=== PATIENT | female | born 1970 | race Caucasian/White ===

== ENCOUNTER 2016-06-12 22:19 | Emergency (ER) | payer BC ==
[2016-06-12 22:33] VITALS: BP 148/101
[2016-06-12] MEDS ORDERED: Ondansetron 4 MG/2 ML SDV IVPUSH ONE (22:54)
[2016-06-12] MEDS ORDERED: Sodium Chloride 0.9% 1,000 ML IV SCH (23:00)
[2016-06-12] MEDS ORDERED: Levofloxacin 250 MG Tab PO ONE (23:17)
--- NOTE | 2016-06-12 23:19 | EDM.PDOC ---
ED HISTORY OF PRESENT ILLNESS - General Chief Complaint: Abdominal Pain Stated Complaint: RIGHT SIDE PAIN Time Seen by Provider: 06/12/16 23:32 Source of Information: Reports: Patient, Family (spouse) History Limitations: Reports: No limitations - History of Present Illness INITIAL COMMENTS - FREE TEXT/NARRATIVE: 45-year-old female presents the ED with severe right upper abdominal pain that does not radiate through to her back. Came on about 2000 hours tonight and has persisted. It is very sharp and stabbing component to the pain with no position couple. She's had similar type pain the last few weeks lasting an hour or 2 often waking her from sleep at 1:00 in the morning. Associated nausea without any vomiting today. She states her bowel function has been normal. She's had no previous abdominal surgeries. Routine orders were ordered for abdominal pain per the triage nurse to the due to the dizziness of the ER.patient ate fish with tartar size about 1800 hours last evening. Symptom Onset Date: 06/12/16 Symptom Onset Time: 20:00 Timing/Duration: Reports: Hour(s):, Constant, Sudden onset Location, General: Reports: abdomen (right buster-abdomen mid and upper.) Quality: Reports: Ache, Sharp, Stabbing Improves with: Reports: None Worsens with: Reports: None Context, General: Denies: Activity, Exercise, Lifting, Sick contact, Trauma, Other Associated Symptoms (General): Reports: loss of appetite, malaise, nausea/ vomiting. Denies: fever/chills, headaches, rash (with no), seizure, shortness of breath, syncope, weakness Treatments QUILL LAYER: Reports: Other (see below) (none) - Related Data Allergies/ADRs: Allergies Allergy/AdvReac Type Severity Reaction Status Date / Time No Known Allergies Allergy Verified 06/12/16 22:33 Home Meds: Home Meds Control Pills 1 tab PO DAILY 06/12/16 [History] Ondansetron [Zofran ODT] 4 mg PO Q6H #5 tab.dis 06/13/16 [Rx] oxyCODONE HCl/Acetaminophen [Percocet 5-325 mg Tablet] 1 - 2 each PO Q4H PRN # 12 tablet 06/13/16 [Rx] Past Medical History - Past Health History Medical/Surgical History: Denies Medical/Surgical History Social & Family History - Family History Family Medical History: Noncontributory - Tobacco Use Smoking Status *Q: Never Smoker Second Hand Smoke Exposure: No - Caffeine Use Caffeine Use: Reports: None - Recreational Drug Use Recreational Drug Use: No - Living Situation & Occupation Living situation: Reports: Occupation: employed ED ROS GENERAL - Review of Systems Review Of Systems: See Below Constitutional: Reports: decreased appetite. Denies: fever, chills, malaise, weakness, fatigue, weight loss HEENT: Reports: No symptoms Respiratory: Reports: No Symptoms Cardiovascular: Reports: No symptoms Endocrine: Reports: no symptoms GI/Abdominal: Reports: Abdominal pain (see history of present), Anorexia, Nausea. Denies: Black stool, Bloody stool, Constipation, Distension, Flatus, Hematemesis, Hematochezia, Stool incontinence, Vomiting : Reports: no symptoms Musculoskeletal: Reports: no symptoms Skin: Reports: no symptoms Neurological: Reports: No Symptoms Psychiatric: Reports: No symptoms Hematologic/Lymphatic: Reports: no symptoms ED EXAM, GENERAL - Physical Exam Exam: See Below Exam Limited By: No limitations General Appearance: alert, moderate distress (in obvious pain and discomfort no position is carpal. She is writhing on the bed.) Eye Exam: bilateral eye: normal inspection (no jaundice.) Throat/Mouth: Normal inspection, Normal lips, Normal oropharynx Head: atraumatic, normocephalic Neck: normal inspection, supple, non-tender, full range of motion. No: lymphadenopathy (L), lymphadenopathy (R) Respiratory/Chest: lungs clear, normal breath sounds, no accessory muscle use, respiratory distress (mild tachypnea due to pain.) Cardiovascular: normal peripheral pulses, regular rate, rhythm, no edema, no gallop, no murmur Peripheral Pulses: 2+: posterior tibial (L), posterior tibial (R), dorsalis pedis (L), dorsalis pedis (R) GI/Abdominal: guarding (right upper quadrant with a positive Harvey sign.), tender (right upper quadrant with guarding.), abnormal bowel sounds: ( hypoactive bowel sounds.) Back Exam: normal inspection, full range of motion. No: CVA tenderness (L), CVA tenderness (R) Extremities: normal inspection, normal range of motion, non-tender, no pedal edema, normal capillary refill Neurological: alert, oriented, CN II-XII intact, normal cognition, normal gait, normal reflexes, no motor/sensory deficits Psychiatric: normal affect, normal mood Skin Exam: Warm, Dry, Intact, Normal color, No rash Course - Vital Signs Last Recorded V/S: Last Vital Signs Temp 36.1 C 06/12/16 22:27 Pulse 64 06/12/16 22:27 Resp 20 06/12/16 22:27 BP 148/101 H 06/12/16 22:27 Pulse Ox 100 06/12/16 22:27 - Orders/Labs/Meds Orders: Active Orders 24 hr Category Date Time Status Abdomen 2V AP Flat Upright [CR] Stat Exams 06/12/16 22:57 Taken Abdomen Pelvis wo Cont [CT] Stat Exams 06/13/16 00:05 Taken AMYLASE [CHEM] Stat Lab 06/13/16 06:10 Results COMPREHENSIVE METABOLIC PN,CMP [CHEM] Stat Lab 06/13/16 06:10 Results GAMMA GLUTAMYL TRANSFERASE,GGT [CHEM] Stat Lab 06/13/16 06:10 Results Sodium Chloride 0.9% [Normal Saline] 1,000 ml Med 06/12/16 23:00 Active IV ASDIRECTED Medication Orders Sodium Chloride (Normal Saline) 1,000 mls @ 125 mls/hr IV ASDIRECTED ROBERTH Last Admin: 06/12/16 23:05 Dose: 150 mls/hr Labs: Laboratory Tests 06/12/16 06/12/16 06/12/16 Range/Units 22:50 22:50 22:50 WBC 9.21 (3.98-10.04) K/mm3 RBC 4.32 (3.98-5.22) M/mm3 Hgb 13.2 (11.2-15.7) gm/L Hct 39.3 (34.1-44.9) % MCV 91.0 (79.4-94.8) fl MCH 30.6 (25.6-32.2) pg MCHC 33.6 (32.2-35.5) g/dl RDW Std Deviation 41.2 (36.4-46.3) fL Plt Count 259 (182-369) K/mm3 MPV 10.5 (9.4-12.3) fl Neutrophils % (Manual) 69 H (40-60) % Band Neutrophils % 0 (0-10) % Lymphocytes % (Manual) 25 (20-40) % Atypical Lymphs % 0 % Monocytes % (Manual) 4 (2-10) % Eosinophils % (Manual) 2 (0.7-5.8) % Basophils % (Manual) 0 L (0.1-1.2) Platelet Estimate Adequate Plt Morphology Comment RBC Morph Comment Normal Sodium 142 (136-145) mEq/L Potassium 3.7 (3.5-5.1) mEq/L Chloride 105 (98-107) mEq/L Carbon Dioxide 26 (21-32) mEq/L Anion Gap 14.7 (5-15) BUN 11 (7-18) mg/dL Creatinine 1.0 (0.55-1.02) mg/dL Est Cr Clr Drug Dosing 72.42 mL/min Estimated GFR (MDRD) > 60 (>60) mL/min BUN/Creatinine Ratio 11.0 L (14-18) Glucose 149 H (74-106) mg/dL Calcium 8.9 (8.5-10.1) mg/dL Total Bilirubin 0.3 (0.2-1.0) mg/dL AST 23 (15-37) U/L ALT 25 (14-59) U/L Alkaline Phosphatase 63 (46-116) U/L C-Reactive Protein 1.1 H* (<1.0) mg/dL Total Protein 7.5 (6.4-8.2) g/dl Albumin 3.5 (3.4-5.0) g/dl Globulin 4.0 gm/dL Albumin/Globulin Ratio 0.9 L (1-2) Amylase (25-115) U/L Lipase 151 (73-393) U/L HCG, Qual Negative (NEGATIVE) Urine Color (Yellow) Urine Appearance (Clear) Urine pH (5.0-8.0) Ur Specific [place] (1.005-1.030) Urine Protein (Negative) Urine Glucose (UA) (Negative) Urine Ketones (Negative) Urine Occult Blood (Negative) Urine Nitrite (Negative) Urine Bilirubin (Negative) Urine Urobilinogen (0.2-1.0) Ur Leukocyte Esterase (Negative) Urine RBC (0-5) /hpf Urine WBC (0-5) /hpf Urine WBC Clumps (NOT SEEN) /hpf Ur Epithelial Cells (0-5) /hpf Ur Squamous Epith Cells (0-5) /hpf Urine Bacteria (FEW) /hpf Urine Mucus (FEW) /hpf 06/13/16 06/13/16 06/13/16 Range/Units 00:49 06:10 06:10 WBC 9.00 (3.98-10.04) K/mm3 RBC 4.38 (3.98-5.22) M/mm3 Hgb 13.3 (11.2-15.7) gm/L Hct 39.6 (34.1-44.9) % MCV 90.4 (79.4-94.8) fl MCH 30.4 (25.6-32.2) pg MCHC 33.6 (32.2-35.5) g/dl RDW Std Deviation 40.9 (36.4-46.3) fL Plt Count 235 (182-369) K/mm3 MPV 10.4 (9.4-12.3) fl Neutrophils % (Manual) 70 H (40-60) % Band Neutrophils % 0 (0-10) % Lymphocytes % (Manual) 26 (20-40) % Atypical Lymphs % 0 % Monocytes % (Manual) 4 (2-10) % Eosinophils % (Manual) 0 L (0.7-5.8) % Basophils % (Manual) 0 L (0.1-1.2) Platelet Estimate Adequate Plt Morphology Comment Normal RBC Morph Comment Normal Sodium 140 (136-145) mEq/L Potassium 4.0 (3.5-5.1) mEq/L Chloride 106 (98-107) mEq/L Carbon Dioxide 23 (21-32) mEq/L Anion Gap 15.0 (5-15) BUN 9 (7-18) mg/dL Creatinine 0.8 (0.55-1.02) mg/dL Est Cr Clr Drug Dosing 90.53 mL/min Estimated GFR (MDRD) > 60 (>60) mL/min BUN/Creatinine Ratio 11.3 L (14-18) Glucose 120 H (74-106) mg/dL Calcium 8.5 (8.5-10.1) mg/dL Total Bilirubin 0.5 (0.2-1.0) mg/dL AST 17 (15-37) U/L ALT 25 (14-59) U/L Alkaline Phosphatase 60 (46-116) U/L C-Reactive Protein (<1.0) mg/dL Total Protein 6.9 (6.4-8.2) g/dl Albumin 3.1 L (3.4-5.0) g/dl Globulin 3.8 gm/dL Albumin/Globulin Ratio 0.8 L (1-2) Amylase 31 (25-115) U/L Lipase (73-393) U/L HCG, Qual (NEGATIVE) Urine Color Yellow (Yellow) Urine Appearance Clear (Clear) Urine pH 6.0 (5.0-8.0) Ur Specific [place] > or = 1.030 (1.005-1.030) Urine Protein Trace H (Negative) Urine Glucose (UA) Negative (Negative) Urine Ketones Trace H (Negative) Urine Occult Blood Negative (Negative) Urine Nitrite Negative (Negative) Urine Bilirubin Negative (Negative) Urine Urobilinogen 2.0 H (0.2-1.0) Ur Leukocyte Esterase Negative (Negative) Urine RBC 0-5 (0-5) /hpf Urine WBC 0-5 (0-5) /hpf Urine WBC Clumps Not seen (NOT SEEN) /hpf Ur Epithelial Cells 0-5 (0-5) /hpf Ur Squamous Epith Cells 0-5 (0-5) /hpf Urine Bacteria Not seen (FEW) /hpf Urine Mucus Not seen (FEW) /hpf Meds: Medications Generic Name Dose Route Start Last Admin Trade Name Freq PRN Reason Stop Dose Admin Sodium Chloride 1,000 mls @ 125 mls/hr 06/12/16 23:00 06/12/16 23:05 Normal Saline IV 150 mls/hr ASDIRECTED ROBERTH Administration Discontinued Medications Generic Name Dose Route Start Last Admin Trade Name Freq PRN Reason Stop Dose Admin Hydromorphone HCl 1 mg 06/12/16 23:44 06/13/16 00:03 Dilaudid IVPUSH 06/12/16 23:45 1 mg ONETIME ONE Administration Hydromorphone HCl 1 mg 06/13/16 01:00 06/13/16 01:16 Dilaudid IVPUSH 06/13/16 01:01 1 mg ONETIME ONE Administration Levofloxacin 500 mg 06/12/16 23:17 06/13/16 00:53 Levaquin PO 06/12/16 23:18 Not Given ONETIME ONE Ondansetron HCl 4 mg 06/12/16 22:54 06/12/16 23:05 Zofran IVPUSH 06/12/16 22:55 4 mg ONETIME ONE Administration - Radiology Interpretation Free Text/Narrative:: 45-year-old female attends the ED with acute onset of severe right buster- abdominal pain mostly upper. Came on about 2000 hours tonight. She deepened supper at about 1800 hours which included fish and turgor sounds. She's had similar type pain off and on for the last few weeks often wake her up at nighttime lasting an hour or 2 and going away. No previous abdominal surgery. Examination reveals her to be very tender in the right upper quadrant with positive Harvey sign. Suspect acute biliary colic. She has no pain referred to her back or flank. had adopted the abdominal pain protocol and ordered x- ray and lab work. She has received Zofran 4 mg IV. I will give her Dilaudid 1 mg IV now for pain relief. - Re-Assessments/Exams Free Text/Narrative Re-Assessment/Exam: 06/13/16 00:00labwork reveals a with a white count of 9.21 with 69% neutrophils and no bands. Hemoglobin is 13.2 hematocrit is 39.3. Platelets are normal. Chemistry shows a sodium of 142 potassium 3.7. Anion gap is 14.7. Glucose elevated at 149. CRP 1.1. Bilirubin 0.3 AST 23 ALT 25. Alk phosphatase 63. Lipase 151. All normal.x-ray of the abdomen shows increased stool throughout the right hemicolon transverse colon and of the upper descending colon compatible with constipation. Obvious stones are identified in the distribution of the right kidney or gallbladder area. 06/13/16 01:05 CT of the abdomen and pelvis has been performed without contrast. Kidneys are well-visualized and there is no evidence of renal stones or stones within the ureters. Liver is normal. Gallbladder does reveal multiple gallstones and there appears to be a 3 mm stone in the common bile duct. Of note there was no abnormalities of liver function or lipase at the initial assessment and pain in been present for about 4 hours prior to lab work. Her pain is still for 5/10. I'm going to give her another milligram of Dilaudid at this time. I will see if she settles enough to allow her to go home versus keeping in the ED overnight and repeating lab tests later this morning to see if there is evidence of biliary tree obstruction which would suggest the need for an ERCP.discussed this plan with the patient and her and they are in agreement . Will have repeat amylase and CMP and CBC done at 0600 hours this morning. 06/13/16 04:33patient has been up to the bathroom and states that she still has very mild discomfort right upper quadrant but rates as a 1/10. She is able to fall back asleep. Lab work is scheduled for 6:00 this morning. 06/13/16 07:13 repeat labs reveal no changes. White count remains normal at 9.0 with 70% neutrophils no bands hemoglobin is 13.3 hematocrit is 39.6 platelets 2 and 35,000. Chemistry is normal. No gross is 120 AST remains normal at 17 ALT of 25 alkaline phosphatase this 60 amylase is 31. 4 there is no signs of biliary tree obstruction at this time the risk is certainly there is there appears to be a 3 mm stone in the common bile duct on CT exam. Therefore going to have her follow up with Dr. Joel More over at [facility] in 2-3 days time to have repeat labs. She needs a consultation at any rate to see Dr. Jazmin Blas to have her gallbladder removed.in the meantime she will return to the ED if she has increased pain nausea vomiting or develops jaundice or worrisome signs of pancreatitis. We will send her home with 12 tablets of Percocet 5 /325and Zofran 4 mg sublingual to be taken as needed for relief of pain or nausea or vomiting. Departure - Departure Time of Disposition: 07:15 Disposition: Home, Self-Care 01 Condition: fair Clinical Impression: Biliary colic Cholelithiasis Qualifiers: Cholelithiasis location: gallbladder and bile duct Cholecystitis presence: without cholecystitis Biliary obstruction: with biliary obstruction Qualified Code(s): K80.71 - Calculus of gallbladder and bile duct without cholecystitis with obstruction Prescriptions: Ondansetron [Zofran ODT] 4 mg PO Q6H #5 tab.dis oxyCODONE HCl/Acetaminophen [Percocet 5-325 mg Tablet] 1 - 2 each PO Q4H PRN # 12 tablet PRN Reason: pain relief. Forms: ED Department Discharge Additional Instructions: evaluation in the emergency room tonight in regards to acute onset of severe right upper quadrant right abdominal pain at [address] exam of the abdomen confirms multiple gallstones but was also suggestive of a stone in the common bile duct which drains both the liver and the pancreas. Suture pain was still present and not well controlled with the risk of developing biliary tree obstruction he were kicked in the ED overnight with repeat blood test done at 0600 hours this morning. Lab tests again revealed no evidence of patellar tree obstruction or signs of infection. Therefore at this time he will be discharged to home on a low-fat diet. Suggest lots of fluids today such as Gatorade, Powerade. Been advanced tocarbohydrate diet such as Jell-O soup be advanced to soups that are during free. Red the carbohydrates should be well tolerated. Suggest arranging followup with Dr. Joel More in 2-3 days time to have repeat labs done to make sure there is no evidence of developing biliary tree obstruction and need for ERCP--the scope to remove the stone from the common bile duct. Also an appointment is to be set up with Dr. Jazmin Blas --surgeon to have the gallbladder removed.if you get recurrent pain may try 2 Percocet tablets with Zofran 4 mg under the tongue. However if the pain worsens or vomiting occurs you will need to return to the emergency room. - My Orders Last 24 Hours: My Active Orders 06/12/16 23:00 Sodium Chloride 0.9% [Normal Saline] 1,000 ml IV ASDIRECTED 06/13/16 00:05 Abdomen Pelvis wo Cont [CT] Stat 06/13/16 06:10 AMYLASE [CHEM] Stat COMPREHENSIVE METABOLIC PN,CMP [CHEM] Stat GAMMA GLUTAMYL TRANSFERASE,GGT [CHEM] Stat - Assessment/Plan Last 24 Hours: My Active Orders 06/12/16 23:00 Sodium Chloride 0.9% [Normal Saline] 1,000 ml IV ASDIRECTED 06/13/16 00:05 Abdomen Pelvis wo Cont [CT] Stat 06/13/16 06:10 AMYLASE [CHEM] Stat COMPREHENSIVE METABOLIC PN,CMP [CHEM] Stat GAMMA GLUTAMYL TRANSFERASE,GGT [CHEM] Stat
[2016-06-12] MEDS ORDERED: HYDROmorphone 1 MG/ML Syringe IVPUSH ONE (23:44)
[2016-06-13] MEDS ORDERED: HYDROmorphone 1 MG/ML Syringe IVPUSH ONE (01:00)
--- NOTE | 2016-06-13 10:34 | CR ---
Abdomen: Supine and upright views of the abdomen was obtained. Comparison: No previous abdominal x-ray. Calcifications within the left side of the pelvis likely representing phleboliths. Stool is noted throughout the colon. Two surgical clips are seen within each side of both inguinal regions. No free air is identified. No soft tissue abnormality is seen. Impression: 1. Incidental findings as described above. Diagnostic code #2
--- NOTE | 2016-06-13 14:13 | CT ---
CT abdomen and pelvis Technique: Multiple axial sections were obtained from above the dome of the diaphragm inferiorly through the pubic symphysis. Intravenous and oral contrast not utilized. This limits some details of soft tissue structures. Small portion of the visualized lung bases show nothing acute. Liver shows no focal parenchymal abnormality. Multiple layering gallstones are seen which appear calcified within the gallbladder. Single stone projects within the cystic duct. No gallbladder dilatation is seen. No inflammatory change identified around the pancreas. Spleen appears within normal limits. Kidneys show no abnormal calcifications or hydronephrosis. Adrenal glands show no nodule. Pancreas is within normal limits. Aorta shows no aneurysmal dilatation. No retroperitoneal adenopathy or mesenteric abnormalities are seen. Appendix is seen which appears normal. No pelvic mass or adenopathy is seen. No ureteral stone is identified. No free fluid or inflammatory changes seen. No bowel dilatation is seen. Bone window settings were reviewed which show minimal disc space narrowing at L4-L5 with slight endplate osteophytes seen within the lower lumbar spine. Impression: 1. Multiple layering calcified gallstones within the gallbladder. Small gallstones seen within the cystic duct. No gallbladder dilatation, surrounding inflammatory change or biliary duct dilatation is seen. If patient has sufficient symptoms to the right upper quadrant, ultrasound could be obtained to further evaluate. 2. Other incidental findings as described above. Diagnostic code #3 I agree with preliminary report issued by [facility] (preliminary report dictated on 06/13/16, 1:54 AM Central Time)
== END 2016-06-13 07:27 | disposition home or self-care (01) ==
LOC: JD.ED 22:19
DX: K80.71 Calculus of gallbladder and bile duct without cholecystitis with obstruction (principal)
CPT/HCPCS: 36415; 74020; 74176; 80053; 81001; 82150; 82977; 83690; 84703; 85025; 86140; 96361; 96374; 96375; 96376; 99285; J1170; J2405; J7040; 99284

== ENCOUNTER 2020-07-13 21:50 | Inpatient (IN) | payer BC ==
[2020-07-13] MEDS ORDERED: Sodium Chloride 0.9% 10 ML Syringe FLUSH PRN (22:18)
[2020-07-13] MEDS ORDERED: Dexamethasone 4 MG/ML SDV IVPUSH ONE (22:21)
[2020-07-13] MEDS ORDERED: Albuterol 6.7 GM Inhaler INH ONE (22:21)
--- NOTE | 2020-07-13 22:26 | EDM.PDOC ---
ED HPI GENERAL MEDICAL PROBLEM - General Chief Complaint: Respiratory Problem Stated Complaint: SOB Time Seen by Provider: 07/13/20 22:04 Source of Information: Reports: Patient History Limitations: Reports: No Limitations - History of Present Illness INITIAL COMMENTS - FREE TEXT/NARRATIVE: The patient presents with shortness of breath, cough, generalized weakness, and diarrhea. This has been going on for about 4 days but the past 2 days she has felt much worse. She has no appetite. She is speaking in 1 to 2 work sentences. She has a fever and chills. She also has congestion. She did not lose her sense of smell or appetite. She has no chest pain or abdominal pain. She has no swelling or pain in her legs. She has no lung problems such as asthma or COPD. She has no history of heart disease or hypertension. She does not smoke. When she walked back to the room, her oxygen saturations were 88% on room air. She came up to 94% on her own. She did not get the COVID 19 vaccine. Onset: Gradual Duration: Day(s): (4) Severity: Moderate Improves with: Reports: None Worsens with: Reports: None Associated Symptoms: Reports: Cough, Fever/Chills, Shortness of Breath. Denies: Chest Pain, Headaches, Nausea/Vomiting - Related Data Allergies Allergy/AdvReac Type Severity Reaction Status Date / Time No Known Allergies Allergy Verified 07/13/20 22:10 Home Meds: Home Meds norgestrel-ethinyl estradioL [Cryselle-28 Tablet] 1 tab PO ASDIRECTED 07/13/20 [History] Past Medical History - Past Health History Medical/Surgical History: Denies Medical/Surgical History Psychiatric History: Reports: None - Past Surgical History GI Surgical History: Reports: Cholecystectomy Social & Family History - Family History Family Medical History: No Pertinent Family History - Tobacco Use Tobacco Use Status *Q: Former Tobacco User Used Tobacco, but Quit: Yes Month/Year Tobacco Last Used: 0 - Caffeine Use Caffeine Use: Reports: None - Living Situation & Occupation Living situation: Reports: Occupation: Employed ED ROS GENERAL - Review of Systems Review Of Systems: See Below Constitutional: Reports: Fever, Chills, Malaise, Weakness, Fatigue HEENT: Reports: No Symptoms Respiratory: Reports: Shortness of Breath, Cough Cardiovascular: Reports: No Symptoms Endocrine: Reports: No Symptoms GI/Abdominal: Reports: Diarrhea, Decreased Appetite. Denies: Abdominal Pain, Nausea, Vomiting : Reports: No Symptoms Musculoskeletal: Reports: No Symptoms ED EXAM, GENERAL - Physical Exam Exam: See Below Exam Limited By: No Limitations General Appearance: Alert, No Apparent Distress Ears: Normal External Exam Nose: Normal Inspection Head: Atraumatic, Normocephalic Neck: Normal Inspection Respiratory/Chest: No Respiratory Distress, Decreased Breath Sounds Cardiovascular: Regular Rate, Rhythm, No Edema, No Murmur GI/Abdominal: Soft, Non-Tender, No Organomegaly, No Mass Back Exam: Normal Inspection Extremities: Normal Inspection #1 Interpretation EKG Date: 07/13/20 Time: 22:24 Rhythm: Other (sinus tachycardia) Rate (Beats/Min): 102 [place]: Normal P-Wave: Present QRS: Normal ST-T: Normal QT: Normal Course - Vital Signs Last Recorded V/S: Last Vital Signs Temp 99.9 F 07/13/20 22:05 Pulse 116 H 07/13/20 22:05 Resp 37 H 07/13/20 22:05 BP 125/75 07/13/20 22:05 Pulse Ox 96 07/13/20 23:00 - Orders/Labs/Meds Orders: Active Orders 24 hr Category Date Time Status Cardiac Monitoring [RC] . DIRECTED Care 07/13/20 22:18 Active EKG Documentation Completion [RC] STAT Care 07/13/20 22:19 Active Oxygen Therapy [RC] PRN Care 07/13/20 22:18 Active Peripheral IV Care [RC] . DIRECTED Care 07/13/20 22:19 Active RT Post Treatment Assessment [RC] Click to Edit Care 07/13/20 22:21 Active RT Pre-Treatment Assessment [RC] Click to Edit Care 07/13/20 22:21 Active Chest 1V Frontal [CR] Stat Exams 07/13/20 22:19 Taken HEPATIC FUNCTION PANEL,HFP [CHEM] DAILY Lab 07/14/20 23:57 Ordered HEPATIC FUNCTION PANEL,HFP [CHEM] DAILY Lab 07/15/20 23:57 Ordered HEPATIC FUNCTION PANEL,HFP [CHEM] DAILY Lab 07/16/20 23:57 Ordered HEPATIC FUNCTION PANEL,HFP [CHEM] DAILY Lab 07/17/20 23:57 Ordered HEPATIC FUNCTION PANEL,HFP [CHEM] DAILY Lab 06/12/21 23:57 Ordered HEPATIC FUNCTION PANEL,HFP [CHEM] Stat Lab 07/13/20 23:57 Ordered Sodium Chloride 0.9% [Normal Saline] 1,000 ml Med 07/13/20 22:30 Active IV .BOLUS Sodium Chloride 0.9% [Saline Flush] Med 07/13/20 22:18 Active 10 ml FLUSH ASDIRECTED PRN Peripheral IV Insertion Adult [OM.PC] Stat Oth 07/13/20 22:18 Ordered Medication Orders Sodium Chloride (Normal Saline) 1,000 mls @ 1,000 mls/hr IV .BOLUS ROBERTH Last Admin: 07/13/20 22:53 Dose: 1,000 mls/hr Documented by: KIRK Sodium Chloride (Sodium Chloride 0.9% 10 Ml Syringe) 10 ml FLUSH ASDIRECTED PRN PRN Reason: Keep Vein Open Last Admin: 07/13/20 22:53 Dose: 10 ml Documented by: [email or web address] Labs: Laboratory Tests 07/13/20 07/13/20 07/13/20 Range/Units 22:20 22:20 22:20 WBC 2.63 L (3.98-10.04) K/mm3 RBC 4.79 (3.98-5.22) M/mm3 Hgb 14.5 (11.2-15.7) gm/dl Hct 42.8 (34.1-44.9) % MCV 89.4 (79.4-94.8) fl MCH 30.3 (25.6-32.2) pg MCHC 33.9 (32.2-35.5) g/dl RDW Std Deviation 43.1 (36.4-46.3) fL Plt Count 133 L D (182-369) K/mm3 MPV 10.2 (9.4-12.3) fl Neut % (Auto) 52.9 (34.0-71.1) % Lymph % (Auto) 39.5 (19.3-51.7) % [place] % (Auto) 7.6 (4.7-12.5) % Eos % (Auto) 0 L (0.7-5.8) Baso % (Auto) 0.0 L (0.1-1.2) % Neut # (Auto) 1.39 L (1.56-6.13) K/mm3 Lymph # (Auto) 1.04 L (1.18-3.74) K/mm3 [place] # (Auto) 0.20 L (0.24-0.36) K/mm3 Eos # (Auto) 0.00 L (0.04-0.36) K/mm3 Baso # (Auto) 0.00 L (0.01-0.08) K/mm3 Manual Slide Review Abnormal smear PT 10.3 (9.7-12.0) SECONDS INR 0.96 APTT 30.5 (21.7-31.4) SECONDS D-Dimer, Quantitative 1.22 H (0.19-0.50) mg/L Sodium 140 (136-145) mEq/L Potassium 3.3 L (3.5-5.1) mEq/L Chloride 102 (98-107) mEq/L Carbon Dioxide 22 (21-32) mEq/L Anion Gap 19.3 H (5-15) BUN 11 (7-18) mg/dL Creatinine 1.1 H (0.55-1.02) mg/dL Est Cr Clr Drug Dosing 63.09 mL/min Estimated GFR (MDRD) 53 (>60) mL/min BUN/Creatinine Ratio 10.0 L (14-18) Glucose 141 H (70-99) mg/dL Lactic Acid (0.4-2.0) mmol/L Calcium 8.5 (8.5-10.1) mg/dL Total Bilirubin 0.6 (0.2-1.0) mg/dL AST 85 H (15-37) U/L ALT 68 H (14-59) U/L Alkaline Phosphatase 69 (46-116) U/L Troponin I < 0.017 (0.00-0.056) ng/mL C-Reactive Protein 3.9 H* (<1.0) mg/dL NT-Pro-B Natriuret Pep (0-125) pg/mL Total Protein 7.9 (6.4-8.2) g/dl Albumin 3.4 (3.4-5.0) g/dl Globulin 4.5 gm/dL Albumin/Globulin Ratio 0.8 L (1-2) SARS-CoV-2 RNA ([place]) (NEGATIVE) 07/13/20 07/13/20 07/13/20 Range/Units 22:20 22:25 22:41 WBC (3.98-10.04) K/mm3 RBC (3.98-5.22) M/mm3 Hgb (11.2-15.7) gm/dl Hct (34.1-44.9) % MCV (79.4-94.8) fl MCH (25.6-32.2) pg MCHC (32.2-35.5) g/dl RDW Std Deviation (36.4-46.3) fL Plt Count (182-369) K/mm3 MPV (9.4-12.3) fl Neut % (Auto) (34.0-71.1) % Lymph % (Auto) (19.3-51.7) % [place] % (Auto) (4.7-12.5) % Eos % (Auto) (0.7-5.8) Baso % (Auto) (0.1-1.2) % Neut # (Auto) (1.56-6.13) K/mm3 Lymph # (Auto) (1.18-3.74) K/mm3 [place] # (Auto) (0.24-0.36) K/mm3 Eos # (Auto) (0.04-0.36) K/mm3 Baso # (Auto) (0.01-0.08) K/mm3 Manual Slide Review PT (9.7-12.0) SECONDS INR APTT (21.7-31.4) SECONDS D-Dimer, Quantitative (0.19-0.50) mg/L Sodium (136-145) mEq/L Potassium (3.5-5.1) mEq/L Chloride (98-107) mEq/L Carbon Dioxide (21-32) mEq/L Anion Gap (5-15) BUN (7-18) mg/dL Creatinine (0.55-1.02) mg/dL Est Cr Clr Drug Dosing mL/min Estimated GFR (MDRD) (>60) mL/min BUN/Creatinine Ratio (14-18) Glucose (70-99) mg/dL Lactic Acid 1.0 (0.4-2.0) mmol/L Calcium (8.5-10.1) mg/dL Total Bilirubin (0.2-1.0) mg/dL AST (15-37) U/L ALT (14-59) U/L Alkaline Phosphatase (46-116) U/L Troponin I (0.00-0.056) ng/mL C-Reactive Protein (<1.0) mg/dL NT-Pro-B Natriuret Pep 12 (0-125) pg/mL Total Protein (6.4-8.2) g/dl Albumin (3.4-5.0) g/dl Globulin gm/dL Albumin/Globulin Ratio (1-2) SARS-CoV-2 RNA ([place]) Positive H (NEGATIVE) Meds: Medications Generic Name Dose Route Start Last Admin Trade Name Freq PRN Reason Stop Dose Admin Sodium Chloride 1,000 mls @ 1,000 mls/hr 07/13/20 22:30 07/13/20 22:53 Normal Saline IV 1,000 mls/hr .BOLUS ROBERTH Administration Sodium Chloride 10 ml 07/13/20 22:18 07/13/20 22:53 Sodium Chloride 0.9% 10 Ml Syringe FLUSH 10 ml ASDIRECTED PRN Administration Keep Vein Open Discontinued Medications Generic Name Dose Route Start Last Admin Trade Name Freq PRN Reason Stop Dose Admin Albuterol 0 gm 07/13/20 22:21 07/13/20 22:58 Albuterol 6.7 Gm Inhaler INH 07/13/20 22:22 2 puff ONETIME ONE Administration Dexamethasone 6 mg 07/13/20 22:21 07/13/20 22:53 Dexamethasone 4 Mg/Ml Sdv IVPUSH 07/13/20 22:22 6 mg ONETIME ONE Administration Remdesivir 200 mg/ Sodium 250 mls @ 250 mls/hr 07/13/20 23:56 Chloride IV 07/13/20 23:57 ONETIME ONE - Re-Assessments/Exams Free Text/Narrative Re-Assessment/Exam: 07/13/20 22:27 I ordered an IV NS 1L bolus, oxygen, EKG, CXR, labs, lactic acid and COVID 19. I also ordered an albuterol treatment and dexamethasone 6mg IV. 07/13/20 22:30 Her EKG shows a sinus tachycardia with no acute changes. 07/14/20 00:07 Her CXR shows a poor inspiration and what appears to be in infiltrate in the left lung. Her WBC is low at 2.13. Her D-dimer is elevated at 1.22. Her K was a little low at 3.3. He anion gap is elevated at 19.3. Her creatinine is a little elevated at 1.1. Her AST is elevated at 85. Her ALT is elevated at 68. Her troponin is negative. Her CRP is elevated at 3.9. She is COVID positive. I have ordered remdesivir 200mg IV. I called Dr Walker and he agreed to the admission. Departure - Departure Time of Disposition: 00:20 Disposition: Admitted As Inpatient 67 Condition: Poor Clinical Impression: Pneumonia due to COVID-19 virus, Hypoxia - Discharge Information Referrals: PCP,None [Primary Care Provider] - Forms: ED Department Discharge Sepsis Event Note (ED) - Evaluation Sepsis Screening Result: Possible Sepsis Risk - Focused Exam Vital Signs: Vital Signs Temp Pulse Resp BP Pulse Ox Pulse Ox 07/13/20 23:00 96 07/13/20 22:18 97 07/13/20 22:05 99.9 F 116 H 37 H 125/75 88 L - My Orders Last 24 Hours: My Active Orders 07/13/20 22:18 Cardiac Monitoring [RC] . DIRECTED Oxygen Therapy [RC] PRN Sodium Chloride 0.9% [Saline Flush] 10 ml FLUSH ASDIRECTED PRN Peripheral IV Insertion Adult [OM.PC] Stat 07/13/20 22:19 EKG Documentation Completion [RC] STAT Peripheral IV Care [RC] . DIRECTED Chest 1V Frontal [CR] Stat 07/13/20 22:21 RT Post Treatment Assessment [RC] Click to Edit RT Pre-Treatment Assessment [RC] Click to Edit 07/13/20 22:30 Sodium Chloride 0.9% [Normal Saline] 1,000 ml IV .BOLUS 07/13/20 23:57 HEPATIC FUNCTION PANEL,HFP [CHEM] Stat 07/14/20 23:57 HEPATIC FUNCTION PANEL,HFP [CHEM] DAILY 07/15/20 23:57 HEPATIC FUNCTION PANEL,HFP [CHEM] DAILY 07/16/20 23:57 HEPATIC FUNCTION PANEL,HFP [CHEM] DAILY 07/17/20 23:57 HEPATIC FUNCTION PANEL,HFP [CHEM] DAILY 07/18/20 23:57 HEPATIC FUNCTION PANEL,HFP [CHEM] DAILY - Assessment/Plan Last 24 Hours: My Active Orders 07/13/20 22:18 Cardiac Monitoring [RC] . DIRECTED Oxygen Therapy [RC] PRN Sodium Chloride 0.9% [Saline Flush] 10 ml FLUSH ASDIRECTED PRN Peripheral IV Insertion Adult [OM.PC] Stat 07/13/20 22:19 EKG Documentation Completion [RC] STAT Peripheral IV Care [RC] . DIRECTED Chest 1V Frontal [CR] Stat 07/13/20 22:21 RT Post Treatment Assessment [RC] Click to Edit RT Pre-Treatment Assessment [RC] Click to Edit 07/13/20 22:30 Sodium Chloride 0.9% [Normal Saline] 1,000 ml IV .BOLUS 07/13/20 23:57 HEPATIC FUNCTION PANEL,HFP [CHEM] Stat 07/14/20 23:57 HEPATIC FUNCTION PANEL,HFP [CHEM] DAILY 07/15/20 23:57 HEPATIC FUNCTION PANEL,HFP [CHEM] DAILY 07/16/20 23:57 HEPATIC FUNCTION PANEL,HFP [CHEM] DAILY 07/17/20 23:57 HEPATIC FUNCTION PANEL,HFP [CHEM] DAILY 07/18/20 23:57 HEPATIC FUNCTION PANEL,HFP [CHEM] DAILY
[2020-07-13] MEDS ORDERED: Sodium Chloride 0.9% 1,000 ML IV SCH (22:30)
[2020-07-13] MEDS ORDERED: REMDESIVIR 200 MG in Sodium Chloride 0.9% 250 ML IV ONE (23:56)
[2020-07-14] MEDS ORDERED: Enoxaparin 100 MG/1 ML Syringe SUBCUT ONE (00:10)
[2020-07-14] MEDS ORDERED: Acetaminophen 325 MG Tab PO PRN (02:14)
[2020-07-14] MEDS ORDERED: Ondansetron 4 MG/2 ML SDV IVPUSH PRN (02:15)
--- NOTE | 2020-07-14 07:12 | PCM.HP.2 ---
<Vel Little - Last Filed: 07/14/20 11:23> H&P History of Present Illness - General Date of Service: 07/14/20 Admit Problem/Dx: Admission Diagnosis/Problem Admission Diagnosis/Problem Pneumonia Source of Information: Patient, Old Records, Provider, RN, RN Notes Reviewed History Limitations: Reports: No Limitations - History of Present Illness Initial Comments - Free Text/Narative: This is a 49-year-old female presented to ED on 07/13/2020 during the late night hours with shortness of breath, cough, generalized weakness, and diarrhea. Reports symptoms began on 07/10/2020 but have worsened in the past 2 days. Reports she can only speak in 1-2 word sentences, has no appetite, has fever and chills and congestion. Denies chest pain, abdominal pain, leg pain, or swelling. Denies any prior lung problems or cardiac disease. She is not a smoker. She was noted to have saturations around 88% on room air in the ED although these did fluctuate. Twelve-lead EKG is obtained showing a sinus tachycardia 102 bpm with no signs of any ectopy. Temp is 99.9. Respirations 37. Blood pressure 125/75. Labs are obtained showing a leukopenia at 2.63. Hemoglobin is 14.5. Platelets are low at 133,000. Neutrophils are 52.9%. INR 0.96. aPTT is 30.5. D-dimer is 1.22. Sodium is 140. Potassium 3.3. Chloride 102. Carbon dioxide 22. Anion gap is 19.3. BUN is 11. Creatinine 1.1. GFR is 53. Glucose is 141. Total bilirubin 0.6. AST is 85, ALT 60, alkaline phosphatase 69. Troponin is less than 0.017. CRP is 3.9. Albumin is 3.4. Lactic acid is 1.0. proBNP is 12. SARS Covid 2 RNA is positive. She is given albuterol inhaler, 6 mg IV push dexamethasone and started on remdesivir. Chest x-ray is obtained showing nothing acute. She is r equiring 2 L of oxygen. She denies any prior medical history and is on control. She is subse quently mated to the medical floor for management of her COVID-19 pneumonia and hypoxia. - Related Data Allergies/Adverse Reactions: Allergies Allergy/AdvReac Type Severity Reaction Status Date / Time No Known Allergies Allergy Verified 07/14/20 01:28 Home Medications: Home Meds norgestrel-ethinyl estradioL [Cryselle-28 Tablet] 1 tab PO ASDIRECTED 07/13/20 [History] Past Medical History - Past Health History Medical/Surgical History: Denies Medical/Surgical History HEENT History: Reports: Impaired Vision, Other (See Below) Other HEENT History: wears glasses Gastrointestinal History: Reports: None Psychiatric History: Reports: None Endocrine/Metabolic History: Reports: Obesity/BMI 30+ - Infectious Disease History Infectious Disease History: Reports: Novel Coronavirus - Past Surgical History HEENT Surgical History: Reports: None GI Surgical History: Reports: Cholecystectomy Endocrine Surgical History: Reports: None Social & Family History - Family History Family Medical History: No Pertinent Family History - Tobacco Use Tobacco Use Status *Q: Never Tobacco User Used Tobacco, but Quit: Yes Month/Year Tobacco Last Used: 0 - Caffeine Use Caffeine Use: Reports: Coffee, Soda - Recreational Drug Use Recreational Drug Use: No - Living Situation & Occupation Living situation: Reports: Occupation: Employed H&P Review of Systems - Review of Systems: Review Of Systems: See Below General: Reports: Fever, Chills, Malaise, Weakness, Fatigue HEENT: Reports: No Symptoms. Denies: Headaches, Sore Throat Pulmonary: Reports: Shortness of Breath, Cough. Denies: Wheezing, Pleuritic Chest Pain, Sputum Cardiovascular: Reports: Dyspnea on Exertion. Denies: Chest Pain, Palpitations, Edema Gastrointestinal: Reports: Diarrhea. Denies: Abdominal Pain, Constipation, Nausea, Vomiting Genitourinary: Reports: No Symptoms. Denies: Pain Musculoskeletal: Reports: No Symptoms Skin: Reports: No Symptoms. Denies: Cyanosis Psychiatric: Reports: No Symptoms Neurological: Reports: No Symptoms. Denies: Confusion, Pre-Existing Deficit, Difficulty Walking, Gait Disturbance Hematologic/Lymphatic: Reports: No Symptoms Immunologic: Reports: No Symptoms Exam - Exam Exam: See Below - Vital Signs Vital Signs: Last Vital Signs Temp 98.4 F 07/14/20 06:07 Pulse 71 07/14/20 06:07 Resp 20 07/14/20 06:07 BP 98/78 07/14/20 06:07 Pulse Ox 94 L 07/14/20 06:26 Weight: 228 lb 3.2 oz - Exam Quality Assessment: Supplemental Oxygen (2L), DVT Prophylaxis. No: Urinary Catheter General: Alert, Oriented, Cooperative. No: Mild Distress HEENT: Conjunctiva Clear, EACs Clear, Mucosa Moist & [place], Posterior Pharynx Clear Neck: Supple, Trachea Midline Lungs: Normal Respiratory Effort, Decreased Breath Sounds. No: Crackles, Wheezing Cardiovascular: Regular Rate, Regular Rhythm GI/Abdominal Exam: Normal Bowel Sounds, Soft, Non-Tender, No Distention (Female) Exam: Deferred Rectal (Female) Exam: Deferred Back Exam: Normal Inspection, Full Range of Motion Extremities: Normal Inspection, Normal Range of Motion, Non-Tender, No Pedal Edema, Normal Capillary Refill Peripheral Pulses: 3+: Radial (L), Radial (R), Dorsalis Pedis (L), Dorsalis Pedis (R) Skin: Warm, Dry, Intact Neurological: Cranial Nerves Intact (Grossly ) Neuro Extensive - Mental Status: Alert, Oriented x3 - Patient Data Lab Results Last 24 hrs: Laboratory Results - last 24 hr 07/13/20 07/13/20 07/13/20 Range/Units 22:20 22:20 22:20 WBC 2.63 L (3.98-10.04) K/mm3 RBC 4.79 (3.98-5.22) M/mm3 Hgb 14.5 (11.2-15.7) gm/dl Hct 42.8 (34.1-44.9) % MCV 89.4 (79.4-94.8) fl MCH 30.3 (25.6-32.2) pg MCHC 33.9 (32.2-35.5) g/dl RDW Std Deviation 43.1 (36.4-46.3) fL Plt Count 133 L D (182-369) K/mm3 MPV 10.2 (9.4-12.3) fl Neut % (Auto) 52.9 (34.0-71.1) % Lymph % (Auto) 39.5 (19.3-51.7) % [place] % (Auto) 7.6 (4.7-12.5) % Eos % (Auto) 0 L (0.7-5.8) Baso % (Auto) 0.0 L (0.1-1.2) % Neut # (Auto) 1.39 L (1.56-6.13) K/mm3 Lymph # (Auto) 1.04 L (1.18-3.74) K/mm3 [place] # (Auto) 0.20 L (0.24-0.36) K/mm3 Eos # (Auto) 0.00 L (0.04-0.36) K/mm3 Baso # (Auto) 0.00 L (0.01-0.08) K/mm3 Manual Slide Review Abnormal smear PT 10.3 (9.7-12.0) SECONDS INR 0.96 APTT 30.5 (21.7-31.4) SECONDS D-Dimer, Quantitative 1.22 H (0.19-0.50) mg/L Sodium 140 (136-145) mEq/L Potassium 3.3 L (3.5-5.1) mEq/L Chloride 102 (98-107) mEq/L Carbon Dioxide 22 (21-32) mEq/L Anion Gap 19.3 H (5-15) BUN 11 (7-18) mg/dL Creatinine 1.1 H (0.55-1.02) mg/dL Est Cr Clr Drug Dosing 63.09 mL/min Estimated GFR (MDRD) 53 (>60) mL/min BUN/Creatinine Ratio 10.0 L (14-18) Glucose 141 H (70-99) mg/dL Lactic Acid (0.4-2.0) mmol/L Calcium 8.5 (8.5-10.1) mg/dL Total Bilirubin 0.6 (0.2-1.0) mg/dL AST 85 H (15-37) U/L ALT 68 H (14-59) U/L Alkaline Phosphatase 69 (46-116) U/L Troponin I < 0.017 (0.00-0.056) ng/mL C-Reactive Protein 3.9 H* (<1.0) mg/dL NT-Pro-B Natriuret Pep (0-125) pg/mL Total Protein 7.9 (6.4-8.2) g/dl Albumin 3.4 (3.4-5.0) g/dl Globulin 4.5 gm/dL Albumin/Globulin Ratio 0.8 L (1-2) SARS-CoV-2 RNA ([facility]) (NEGATIVE) 07/13/20 07/13/20 07/13/20 Range/Units 22:20 22:25 22:41 WBC (3.98-10.04) K/mm3 RBC (3.98-5.22) M/mm3 Hgb (11.2-15.7) gm/dl Hct (34.1-44.9) % MCV (79.4-94.8) fl MCH (25.6-32.2) pg MCHC (32.2-35.5) g/dl RDW Std Deviation (36.4-46.3) fL Plt Count (182-369) K/mm3 MPV (9.4-12.3) fl Neut % (Auto) (34.0-71.1) % Lymph % (Auto) (19.3-51.7) % [place] % (Auto) (4.7-12.5) % Eos % (Auto) (0.7-5.8) Baso % (Auto) (0.1-1.2) % Neut # (Auto) (1.56-6.13) K/mm3 Lymph # (Auto) (1.18-3.74) K/mm3 [place] # (Auto) (0.24-0.36) K/mm3 Eos # (Auto) (0.04-0.36) K/mm3 Baso # (Auto) (0.01-0.08) K/mm3 Manual Slide Review PT (9.7-12.0) SECONDS INR APTT (21.7-31.4) SECONDS D-Dimer, Quantitative (0.19-0.50) mg/L Sodium (136-145) mEq/L Potassium (3.5-5.1) mEq/L Chloride (98-107) mEq/L Carbon Dioxide (21-32) mEq/L Anion Gap (5-15) BUN (7-18) mg/dL Creatinine (0.55-1.02) mg/dL Est Cr Clr Drug Dosing mL/min Estimated GFR (MDRD) (>60) mL/min BUN/Creatinine Ratio (14-18) Glucose (70-99) mg/dL Lactic Acid 1.0 (0.4-2.0) mmol/L Calcium (8.5-10.1) mg/dL Total Bilirubin (0.2-1.0) mg/dL AST (15-37) U/L ALT (14-59) U/L Alkaline Phosphatase (46-116) U/L Troponin I (0.00-0.056) ng/mL C-Reactive Protein (<1.0) mg/dL NT-Pro-B Natriuret Pep 12 (0-125) pg/mL Total Protein (6.4-8.2) g/dl Albumin (3.4-5.0) g/dl Globulin gm/dL Albumin/Globulin Ratio (1-2) SARS-CoV-2 RNA ([facility]) Positive H (NEGATIVE) 07/14/20 Range/Units 06:00 WBC (3.98-10.04) K/mm3 RBC (3.98-5.22) M/mm3 Hgb (11.2-15.7) gm/dl Hct (34.1-44.9) % MCV (79.4-94.8) fl MCH (25.6-32.2) pg MCHC (32.2-35.5) g/dl RDW Std Deviation (36.4-46.3) fL Plt Count (182-369) K/mm3 MPV (9.4-12.3) fl Neut % (Auto) (34.0-71.1) % Lymph % (Auto) (19.3-51.7) % [place] % (Auto) (4.7-12.5) % Eos % (Auto) (0.7-5.8) Baso % (Auto) (0.1-1.2) % Neut # (Auto) (1.56-6.13) K/mm3 Lymph # (Auto) (1.18-3.74) K/mm3 [place] # (Auto) (0.24-0.36) K/mm3 Eos # (Auto) (0.04-0.36) K/mm3 Baso # (Auto) (0.01-0.08) K/mm3 Manual Slide Review PT (9.7-12.0) SECONDS INR APTT (21.7-31.4) SECONDS D-Dimer, Quantitative (0.19-0.50) mg/L Sodium (136-145) mEq/L Potassium (3.5-5.1) mEq/L Chloride (98-107) mEq/L Carbon Dioxide (21-32) mEq/L Anion Gap (5-15) BUN (7-18) mg/dL Creatinine (0.55-1.02) mg/dL Est Cr Clr Drug Dosing mL/min Estimated GFR (MDRD) (>60) mL/min BUN/Creatinine Ratio (14-18) Glucose (70-99) mg/dL Lactic Acid (0.4-2.0) mmol/L Calcium (8.5-10.1) mg/dL Total Bilirubin 0.5 (0.2-1.0) mg/dL AST 81 H (15-37) U/L ALT 66 H (14-59) U/L Alkaline Phosphatase 67 (46-116) U/L Troponin I (0.00-0.056) ng/mL C-Reactive Protein (<1.0) mg/dL NT-Pro-B Natriuret Pep (0-125) pg/mL Total Protein 7.2 (6.4-8.2) g/dl Albumin 3.0 L (3.4-5.0) g/dl Globulin 4.2 gm/dL Albumin/Globulin Ratio 0.7 L (1-2) SARS-CoV-2 RNA ([facility]) (NEGATIVE) Result Diagrams: 07/13/20 22:20 07/13/20 22:20 Sepsis Event Note - Evaluation Sepsis Screening Result: Sepsis Risk - Focused Exam Vital Signs: Vital Signs Temp Temp Pulse Pulse Resp BP BP 07/14/20 06:26 07/14/20 06:07 98.4 F 71 20 98/78 07/14/20 01:26 98.1 F 94 20 94/70 07/14/20 01:10 95 28 H 129/79 07/13/20 23:00 07/13/20 22:18 07/13/20 22:05 99.9 F 116 H 37 H 125/75 Pulse Ox Pulse Ox 07/14/20 06:26 94 L 07/14/20 06:07 95 07/14/20 01:26 93 L 07/14/20 01:10 97 07/13/20 23:00 96 07/13/20 22:18 97 07/13/20 22:05 88 L - Problem List (1) COVID-19 SNOMED Code(s): 033404558 ICD Code: U07.1 - COVID-19 Status: Acute Current Visit: Yes (2) Elevated d-dimer SNOMED Code(s): 169166818 ICD Code: R79.89 - OTHER SPECIFIED ABNORMAL FINDINGS OF BLOOD CHEMISTRY Status: Acute Current Visit: Yes (3) Hypoxia SNOMED Code(s): 133861995 ICD Code: R09.02 - HYPOXEMIA Status: Acute Current Visit: Yes Problem List Initiated/Reviewed/Updated: Yes Orders Last 24hrs: Active Orders 24 hr Category Date Time Status Admission Status [Patient Status] [ADT] Routine ADT 07/14/20 00:20 Active Patient Status [ADT] Routine ADT 07/14/20 00:40 Active Bedrest Bathroom Privileges [RC] ASDIRECTED Care 07/14/20 02:13 Active Cardiac Monitoring [RC] . DIRECTED Care 07/13/20 22:18 Active Oxygen Therapy [RC] PRN Care 07/13/20 22:18 Active RT Post Treatment Assessment [RC] Click to Edit Care 07/13/20 22:21 Active RT Pre-Treatment Assessment [RC] Click to Edit Care 07/13/20 22:21 Active Regular Diet [DIET] Diet 07/14/20 Breakfast Active Chest 1V Frontal [CR] Stat Exams 07/13/20 22:19 Taken HEPATIC FUNCTION PANEL,[facility] [CHEM] DAILY Lab 07/14/20 06:00 Results HEPATIC FUNCTION PANEL,[facility] [CHEM] DAILY Lab 07/15/20 06:00 Ordered HEPATIC FUNCTION PANEL,HFP [CHEM] DAILY Lab 07/16/20 06:00 Ordered HEPATIC FUNCTION PANEL,HFP [CHEM] DAILY Lab 07/17/20 06:00 Ordered HEPATIC FUNCTION PANEL,HFP [CHEM] DAILY Lab 07/18/20 06:00 Ordered HEPATIC FUNCTION PANEL,[facility] [CHEM] Stat Lab 07/13/20 23:57 Ordered Acetaminophen [TylenoL] Med 07/14/20 02:14 Active 975 mg PO Q4H PRN Enoxaparin [Lovenox] Med 07/15/20 00:00 Active 100 mg SUBCUT DAILY Ondansetron [Zofran] Med 07/14/20 02:15 Active 4 mg IVPUSH Q6H PRN Sodium Chloride 0.9% [Saline Flush] Med 07/13/20 22:18 Active 10 ml FLUSH ASDIRECTED PRN Peripheral IV Insertion Adult [OM.PC] Stat Oth 07/13/20 22:18 Ordered Code Status [Resuscitation Status] Routine Resus Stat 07/14/20 02:13 Ordered Medication Orders Acetaminophen (Acetaminophen 325 Mg Tab) 975 mg PO Q4H PRN PRN Reason: Pain/Fever Enoxaparin Sodium (Enoxaparin 100 Mg/1 Ml Syringe) 100 mg SUBCUT DAILY ROBERTH Ondansetron HCl (Ondansetron 4 Mg/2 Ml Sdv) 4 mg IVPUSH Q6H PRN PRN Reason: Nausea/Vomiting Sodium Chloride (Sodium Chloride 0.9% 10 Ml Syringe) 10 ml FLUSH ASDIRECTED PRN PRN Reason: Keep Vein Open Last Admin: 07/13/20 22:53 Dose: 10 ml Documented by: KIRK Assessment/Plan Comment:: Assessment- day of admission 07/14/2020 * 49-year-old female presents to ED with SLB, cough, generalized weakness, diarrhea * Reports symptoms began on 07/10/2020 but have been getting worse * Saturations 88% on room air noted in ED * No significant medical history but is on control * Twelve-lead EKG obtained in ED shows sinus tachycardia at 102 bpm with no ectopy * Chest x-ray shows nothing acute * Will hold off PT/OT for now * Labs in ED: * WBC 2.63 * Hemoglobin 14.5 * Platelet 133,000 * Neutrophils 52.9% * INR 0.69 * D-dimer 1.22 * Sodium 140 * Potassium 3.3 * Chloride 102 * Carbon dioxide 22 * Anion gap 19.3 * BUN 11, creatinine 1.1, GFR 53 * Glucose 141 * Total bilirubin 0.6 * AST 85, ALT 68, alkaline phosphatase 69 * Troponin less than 0.017 * CRP 3.9 * Albumin 3.4 * Lactic acid 1.0 * proBNP 12 * SARS Covid 2 RNA positive * Given a 1 L fluid bolus, albuterol MDI, 6 mg dexamethasone and 200 mg remdesivir * Admitted to the floor inpatient with telemetry for management of COVID-19 with hypoxia PLAN COVID-19 Hypoxia Elevated D-Dimer * Remdesivir - day 03/18 * Dexamethasone 6mg - Day 03/18 * CXR shows nothing acute so will hold off ABX for now * O2 as needed with goal saturations of 88-95% * IS/Acapella * RT consultation * Prone whenever able * PRN albuterol inhaler * Lovenox 1mg/kg daily * CTA to rule out PE due to elevated D-Dimer, hypoxia, SOB * Tylenol PRN for fever/pain * Daily labs * D-Dimer Q48 hours * Pepcid 20mg BID * Zinc supplementation * Vitamin D supplementation * Daily 81mg ASA * Telemetry * Continuous pulse oximetry * Airborne/contact isolation Code status: Full code PCP: Juliet Wade NP DVT prophylaxis: 1mg/kg Lovenox Disposition: Patient admitted to [facility] with telemetry for management of COVID- 19 symptoms, including hypoxia. Anticipated length of stay 4 to 5 days, although could be sooner if patient is able to wean off of oxygen. - Mortality Measure Prognosis:: Good <Rangel Peterson Jr - Last Filed: 07/14/20 16:56> H&P History of Present Illness - General Admit Problem/Dx: Admission Diagnosis/Problem Admission Diagnosis/Problem Pneumonia Exam - Vital Signs Vital Signs: Last Vital Signs Temp 97.7 F 07/14/20 12:54 Pulse 89 07/14/20 12:54 Resp 18 07/14/20 12:54 BP 125/73 07/14/20 12:54 Pulse Ox 96 07/14/20 15:26 - Patient Data Lab Results Last 24 hrs: Laboratory Results - last 24 hr 07/13/20 07/13/20 07/13/20 Range/Units 22:20 22:20 22:20 WBC 2.63 L (3.98-10.04) K/mm3 RBC 4.79 (3.98-5.22) M/mm3 Hgb 14.5 (11.2-15.7) gm/dl Hct 42.8 (34.1-44.9) % MCV 89.4 (79.4-94.8) fl MCH 30.3 (25.6-32.2) pg MCHC 33.9 (32.2-35.5) g/dl RDW Std Deviation 43.1 (36.4-46.3) fL Plt Count 133 L D (182-369) K/mm3 MPV 10.2 (9.4-12.3) fl Neut % (Auto) 52.9 (34.0-71.1) % Lymph % (Auto) 39.5 (19.3-51.7) % [place] % (Auto) 7.6 (4.7-12.5) % Eos % (Auto) 0 L (0.7-5.8) Baso % (Auto) 0.0 L (0.1-1.2) % Neut # (Auto) 1.39 L (1.56-6.13) K/mm3 Lymph # (Auto) 1.04 L (1.18-3.74) K/mm3 [place] # (Auto) 0.20 L (0.24-0.36) K/mm3 Eos # (Auto) 0.00 L (0.04-0.36) K/mm3 Baso # (Auto) 0.00 L (0.01-0.08) K/mm3 Manual Slide Review Abnormal smear PT 10.3 (9.7-12.0) SECONDS INR 0.96 APTT 30.5 (21.7-31.4) SECONDS D-Dimer, Quantitative 1.22 H (0.19-0.50) mg/L Sodium 140 (136-145) mEq/L Potassium 3.3 L (3.5-5.1) mEq/L Chloride 102 (98-107) mEq/L Carbon Dioxide 22 (21-32) mEq/L Anion Gap 19.3 H (5-15) BUN 11 (7-18) mg/dL Creatinine 1.1 H (0.55-1.02) mg/dL Est Cr Clr Drug Dosing 63.09 mL/min Estimated GFR (MDRD) 53 (>60) mL/min BUN/Creatinine Ratio 10.0 L (14-18) Glucose 141 H (70-99) mg/dL Lactic Acid (0.4-2.0) mmol/L Calcium 8.5 (8.5-10.1) mg/dL Total Bilirubin 0.6 (0.2-1.0) mg/dL Direct Bilirubin (0.0-0.2) mg/dl Indirect Bilirubin AST 85 H (15-37) U/L ALT 68 H (14-59) U/L Alkaline Phosphatase 69 (46-116) U/L Troponin I < 0.017 (0.00-0.056) ng/mL C-Reactive Protein 3.9 H* (<1.0) mg/dL NT-Pro-B Natriuret Pep (0-125) pg/mL Total Protein 7.9 (6.4-8.2) g/dl Albumin 3.4 (3.4-5.0) g/dl Globulin 4.5 gm/dL Albumin/Globulin Ratio 0.8 L (1-2) Vitamin D 25-Hydroxy (30.0-100.0) ng/ml HCG, Qual (NEGATIVE) SARS-CoV-2 RNA ([place]) (NEGATIVE) 07/13/20 07/13/20 07/13/20 Range/Units 22:20 22:25 22:41 WBC (3.98-10.04) K/mm3 RBC (3.98-5.22) M/mm3 Hgb (11.2-15.7) gm/dl Hct (34.1-44.9) % MCV (79.4-94.8) fl MCH (25.6-32.2) pg MCHC (32.2-35.5) g/dl RDW Std Deviation (36.4-46.3) fL Plt Count (182-369) K/mm3 MPV (9.4-12.3) fl Neut % (Auto) (34.0-71.1) % Lymph % (Auto) (19.3-51.7) % [place] % (Auto) (4.7-12.5) % Eos % (Auto) (0.7-5.8) Baso % (Auto) (0.1-1.2) % Neut # (Auto) (1.56-6.13) K/mm3 Lymph # (Auto) (1.18-3.74) K/mm3 [place] # (Auto) (0.24-0.36) K/mm3 Eos # (Auto) (0.04-0.36) K/mm3 Baso # (Auto) (0.01-0.08) K/mm3 Manual Slide Review PT (9.7-12.0) SECONDS INR APTT (21.7-31.4) SECONDS D-Dimer, Quantitative (0.19-0.50) mg/L Sodium (136-145) mEq/L Potassium (3.5-5.1) mEq/L Chloride (98-107) mEq/L Carbon Dioxide (21-32) mEq/L Anion Gap (5-15) BUN (7-18) mg/dL Creatinine (0.55-1.02) mg/dL Est Cr Clr Drug Dosing mL/min Estimated GFR (MDRD) (>60) mL/min BUN/Creatinine Ratio (14-18) Glucose (70-99) mg/dL Lactic Acid 1.0 (0.4-2.0) mmol/L Calcium (8.5-10.1) mg/dL Total Bilirubin (0.2-1.0) mg/dL Direct Bilirubin (0.0-0.2) mg/dl Indirect Bilirubin AST (15-37) U/L ALT (14-59) U/L Alkaline Phosphatase (46-116) U/L Troponin I (0.00-0.056) ng/mL C-Reactive Protein (<1.0) mg/dL NT-Pro-B Natriuret Pep 12 (0-125) pg/mL Total Protein (6.4-8.2) g/dl Albumin (3.4-5.0) g/dl Globulin gm/dL Albumin/Globulin Ratio (1-2) Vitamin D 25-Hydroxy (30.0-100.0) ng/ml HCG, Qual (NEGATIVE) SARS-CoV-2 RNA ([place]) Positive H (NEGATIVE) 07/14/20 07/14/20 07/14/20 Range/Units 06:00 06:00 06:00 WBC (3.98-10.04) K/mm3 RBC (3.98-5.22) M/mm3 Hgb (11.2-15.7) gm/dl Hct (34.1-44.9) % MCV (79.4-94.8) fl MCH (25.6-32.2) pg MCHC (32.2-35.5) g/dl RDW Std Deviation (36.4-46.3) fL Plt Count (182-369) K/mm3 MPV (9.4-12.3) fl Neut % (Auto) (34.0-71.1) % Lymph % (Auto) (19.3-51.7) % [place] % (Auto) (4.7-12.5) % Eos % (Auto) (0.7-5.8) Baso % (Auto) (0.1-1.2) % Neut # (Auto) (1.56-6.13) K/mm3 Lymph # (Auto) (1.18-3.74) K/mm3 [place] # (Auto) (0.24-0.36) K/mm3 Eos # (Auto) (0.04-0.36) K/mm3 Baso # (Auto) (0.01-0.08) K/mm3 Manual Slide Review PT (9.7-12.0) SECONDS INR APTT (21.7-31.4) SECONDS D-Dimer, Quantitative (0.19-0.50) mg/L Sodium (136-145) mEq/L Potassium (3.5-5.1) mEq/L Chloride (98-107) mEq/L Carbon Dioxide (21-32) mEq/L Anion Gap (5-15) BUN (7-18) mg/dL Creatinine (0.55-1.02) mg/dL Est Cr Clr Drug Dosing mL/min Estimated GFR (MDRD) (>60) mL/min BUN/Creatinine Ratio (14-18) Glucose (70-99) mg/dL Lactic Acid (0.4-2.0) mmol/L Calcium (8.5-10.1) mg/dL Total Bilirubin 0.5 (0.2-1.0) mg/dL Direct Bilirubin 0.20 (0.0-0.2) mg/dl Indirect Bilirubin 0.30 AST 81 H (15-37) U/L ALT 66 H (14-59) U/L Alkaline Phosphatase 67 (46-116) U/L Troponin I (0.00-0.056) ng/mL C-Reactive Protein (<1.0) mg/dL NT-Pro-B Natriuret Pep (0-125) pg/mL Total Protein 7.2 (6.4-8.2) g/dl Albumin 3.0 L (3.4-5.0) g/dl Globulin 4.2 gm/dL Albumin/Globulin Ratio 0.7 L (1-2) Vitamin D 25-Hydroxy 31.7 (30.0-100.0) ng/ml HCG, Qual Negative (NEGATIVE) SARS-CoV-2 RNA ([place]) (NEGATIVE) Result Diagrams: 07/13/20 22:20 07/13/20 22:20 Sepsis Event Note - Focused Exam Vital Signs: Vital Signs Temp Pulse Resp BP Pulse Ox Pulse Ox 07/14/20 15:26 96 07/14/20 12:54 97.7 F 89 18 125/73 95 07/14/20 08:57 95 07/14/20 08:25 98.2 F 79 20 121/75 94 L 07/14/20 06:26 94 L 07/14/20 06:07 98.4 F 71 20 98/78 95 Orders Last 24hrs: Active Orders 24 hr Category Date Time Status Patient Status [ADT] Routine ADT 07/14/20 00:40 Active Cardiac Monitoring [RC] . DIRECTED Care 07/13/20 22:18 Active Height and Weight [RC] 06 Care 07/14/20 07:45 Active Intake and Output [RC] 04,16 Care 07/14/20 07:45 Active Oxygen Therapy [RC] PRN Care 07/13/20 22:18 Active Positioning, Patient [RC] ASDIRECTED Care 07/14/20 07:48 Active Pulse Oximetry [RC] CONTINUOUS Care 07/14/20 07:45 Active RT Chest Physiotherapy [RC] ASDIRECTED Care 07/14/20 07:45 Active RT Incentive Spirometry [RC] ASDIRECTED Care 07/14/20 07:45 Active RT Post Treatment Assessment [RC] Click to Edit Care 07/13/20 22:21 Active RT Pre-Treatment Assessment [RC] Click to Edit Care 07/13/20 22:21 Active Up With Assistance [RC] ASDIRECTED Care 07/14/20 07:45 Active Vital Signs [RC] Q6HR Care 07/14/20 07:45 Active Respiratory Care Assess and Treatment [CONS] Routine Cons 07/14/20 07:47 Active Regular Diet [DIET] Diet 07/14/20 Breakfast Active C-REACTIVE PROTEIN [CHEM] AM Lab 07/15/20 05:11 Ordered C-REACTIVE PROTEIN [CHEM] AM Lab 07/16/20 05:11 Ordered C-REACTIVE PROTEIN [CHEM] AM Lab 07/17/20 05:11 Ordered C-REACTIVE PROTEIN [CHEM] AM Lab 07/18/20 05:11 Ordered CBC WITH AUTO DIFF [HEME] AM Lab 07/15/20 05:11 Ordered CBC WITH AUTO DIFF [HEME] AM Lab 07/16/20 05:11 Ordered CBC WITH AUTO DIFF [HEME] AM Lab 07/17/20 05:11 Ordered CBC WITH AUTO DIFF [HEME] AM Lab 07/18/20 05:11 Ordered COMPREHENSIVE METABOLIC PN,CMP [CHEM] AM Lab 07/15/20 05:11 Ordered COMPREHENSIVE METABOLIC PN,CMP [CHEM] AM Lab 07/16/20 05:11 Ordered COMPREHENSIVE METABOLIC PN,CMP [CHEM] AM Lab 07/17/20 05:11 Ordered COMPREHENSIVE METABOLIC PN,CMP [CHEM] AM Lab 07/18/20 05:11 Ordered D-DIMER QUANTITATIVE [COAG] Q48H Lab 07/15/20 05:11 Ordered D-DIMER QUANTITATIVE [COAG] Q48H Lab 07/17/20 05:11 Ordered D-DIMER QUANTITATIVE [COAG] Q48H Lab 07/19/20 05:11 Ordered MAGNESIUM [CHEM] AM Lab 07/15/20 05:11 Ordered MAGNESIUM [CHEM] AM Lab 07/16/20 05:11 Ordered MAGNESIUM [CHEM] AM Lab 07/17/20 05:11 Ordered MAGNESIUM [CHEM] AM Lab 07/18/20 05:11 Ordered Acetaminophen [TylenoL] Med 07/14/20 02:14 Active 975 mg PO Q4H PRN Albuterol [Proventil HFA] Med 07/14/20 07:45 Active See Dose Instructions INH Q2H PRN Aspirin Med 07/14/20 11:30 Active 81 mg PO DAILY Cholecalciferol (Vitamin D3) [Vitamin D3] Med 07/14/20 09:00 Active 5,000 unit PO DAILY Enoxaparin [Lovenox] Med 07/14/20 21:00 Active 100 mg SUBCUT Q24H Famotidine [Pepcid] Med 07/14/20 09:00 Active 20 mg PO BID Ondansetron [Zofran] Med 07/14/20 02:15 Active 4 mg IVPUSH Q6H PRN Remdesivir 100 mg Med 07/14/20 23:30 Active Sodium Chloride 0.9% [Normal Saline] 100 ml IV Q24H Sodium Chloride 0.9% [Saline Flush] Med 07/13/20 22:18 Active 10 ml FLUSH ASDIRECTED PRN Sodium Chloride 0.9% [Saline Flush] Med 07/14/20 09:47 Active 10 ml FLUSH ONETIME PRN Zinc Sulfate [Zincate] Med 07/14/20 09:00 Active 220 mg PO DAILY dexAMETHasone Med 07/14/20 09:00 Active 6 mg PO DAILY Isolation [COMM] Routine Oth 07/14/20 07:45 Ordered Peripheral IV Insertion Adult [OM.PC] Stat Ot 07/13/20 22:18 Ordered Code Status [Resuscitation Status] Routine Resus Stat 07/14/20 02:13 Ordered Medication Orders Acetaminophen (Acetaminophen 325 Mg Tab) 975 mg PO Q4H PRN PRN Reason: Pain/Fever Albuterol (Albuterol 6.7 Gm Inhaler) 0 gm INH Q2H PRN PRN Reason: SOB/Wheezing Aspirin (Aspirin 81 Mg Tab.Chew) 81 mg PO DAILY [facility] Last Admin: 07/14/20 12:52 Dose: 81 mg Documented by: JEANNE Cholecalciferol (Cholecalciferol (Vitamin D3) 5,000 Unit Cap) 5,000 unit PO DAILY [facility] Last Admin: 07/14/20 09:14 Dose: 5,000 unit Documented by: JEANNE Dexamethasone (Dexamethasone 4 Mg Tab) 6 mg PO DAILY [facility] Stop: 07/22/20 09:01 Last Admin: 07/14/20 09:15 Dose: 6 mg Documented by: JEANNE Enoxaparin Sodium (Enoxaparin 100 Mg/1 Ml Syringe) 100 mg SUBCUT Q24H [facility] Famotidine (Famotidine 20 Mg Tab) 20 mg PO BID [facility] Last Admin: 07/14/20 09:14 Dose: 20 mg Documented by: JEANNE Remdesivir 100 mg/ Sodium (Chloride) 100 mls @ 100 mls/hr IV Q24H [facility] [facility] Stop: 07/18/20 00:29 Ondansetron HCl (Ondansetron 4 Mg/2 Ml Sdv) 4 mg IVPUSH Q6H PRN PRN Reason: Nausea/Vomiting Sodium Chloride (Sodium Chloride 0.9% 10 Ml Syringe) 10 ml FLUSH ASDIRECTED PRN PRN Reason: Keep Vein Open Last Admin: 07/13/20 22:53 Dose: 10 ml Documented by: KIRK Sodium Chloride (Sodium Chloride 0.9% 10 Ml Syringe) 10 ml FLUSH ONETIME PRN PRN Reason: IV FLUSH Last Admin: 07/14/20 10:47 Dose: 10 ml Documented by: YANIRA Zinc Sulfate (Zinc Sulfate 220 Mg Cap) 220 mg PO DAILY ROBERTH Last Admin: 07/14/20 09:14 Dose: 220 mg Documented by: JEANNE Assessment/Plan Comment:: Case discussed in full. Agree with evaluation, assessment and plan. -Andrew Muse Jr., DO
[2020-07-14] MEDS ORDERED: Albuterol 6.7 GM Inhaler INH PRN (07:45)
[2020-07-14] MEDS ORDERED: NORGESTREL ETHINYL ESTRADIOL PO SCH (08:00)
[2020-07-14] MEDS: Zinc Sulfate 220 MG Cap PO SCH (09:14)
[2020-07-14] MEDS: Famotidine 20 MG Tab PO SCH ×2 (09:14→22:37)
[2020-07-14] MEDS: Cholecalciferol (Vitamin D3) 5,000 UNIT Cap PO SCH (09:14)
[2020-07-14] MEDS: Dexamethasone 4 MG Tab PO SCH (09:15)
[2020-07-14] MEDS ORDERED: Sodium Chloride 0.9% 10 ML Syringe FLUSH PRN (09:47)
[2020-07-14] MEDS ORDERED: Iopamidol 755 Mg/ML 100 ML Bottle IVPUSH ONE (09:47)
[2020-07-14] MEDS ORDERED: Sodium Chloride 0.9% 100 ML IV SCH (10:00)
--- NOTE | 2020-07-14 10:05 | CR ---
Chest: Portable view of the chest was obtained. Comparison: No prior chest imaging is available. Heart size and mediastinum are normal. Lungs are clear with no acute parenchymal changes. Slight scoliosis is noted within the thoracic spine. No acute osseous abnormality is appreciated. Impression: 1. Nothing acute is seen on portable chest x-ray. Diagnostic code #2
--- NOTE | 2020-07-14 11:04 | CT ---
CT chest Technique: Multiple axial sections were obtained through the chest. Intravenous contrast was not utilized. Study has been performed as a pulmonary angiogram protocol. Findings: Pulmonary arteries are fairly well opacified. No filling defects are seen to indicate discrete pulmonary embolism. Thoracic aorta shows no aneurysm. Mediastinum and hilar regions show no adenopathy. No axillary adenopathy is noted. Small portion of the visualized upper abdominal structures show nothing acute. Mild patchy areas of increased density are seen within both lungs which are worse on the left side. Findings most likely represent mild COVID pneumonia. No pleural effusions are seen. Bone window settings were reviewed which show no acute osseous finding. Impression: 1. No findings of pulmonary embolism. 2. Patchy areas of increased density seen on both sides of the chest, worse on the left side compatible with COVID pneumonia. Diagnostic code #3
[2020-07-14] MEDS: Aspirin 81 MG Tab.Chew PO SCH (12:52)
[2020-07-14] MEDS: REMDESIVIR 100 MG in Sodium Chloride 0.9% 100 ML IV SCH (22:38)
[2020-07-14] MEDS: Enoxaparin 100 MG/1 ML Syringe SUBCUT SCH (22:38)
--- NOTE | 2020-07-15 07:56 | PCM.PN ---
<Vel Little - Last Filed: 07/15/20 12:09> - General Info Date of Service: 07/15/20 Admission Dx/Problem (Free Text): Admission Diagnosis/Problem Admission Diagnosis/Problem Pneumonia Functional Status: Reports: Pain Controlled, Tolerating Diet, Ambulating, Urinating, Incentive Spirometry, Other (Acapella ). Denies: New Symptoms - Review of Systems General: Reports: No Symptoms. Denies: Fever, Weakness, Fatigue, Malaise, Chills HEENT: Reports: No Symptoms. Denies: Headaches, Sore Throat Pulmonary: Reports: Cough, Sputum. Denies: Shortness of Breath, Pleuritic Chest Pain, Wheezing Cardiovascular: Reports: Dyspnea on Exertion. Denies: Chest Pain, Palpitations, Edema Gastrointestinal: Reports: Diarrhea (improving ). Denies: Abdominal Pain, Constipation, Nausea, Vomiting Genitourinary: Reports: No Symptoms. Denies: Pain Musculoskeletal: Reports: No Symptoms Skin: Reports: No Symptoms. Denies: Cyanosis Neurological: Reports: No Symptoms. Denies: Confusion, Difficulty Walking, Gait Disturbance Psychiatric: Reports: No Symptoms - Patient Data Vitals - Most Recent: Last Vital Signs Temp 97.9 F 07/15/20 03:41 Pulse 67 07/15/20 03:41 Resp 20 07/15/20 03:41 BP 113/72 07/15/20 03:41 Pulse Ox 91 L 07/15/20 06:18 Weight - Most Recent: 229 lb 3.2 oz I&O - Last 24 Hours: Intake & Output 07/14/20 07/15/20 07/15/20 22:59 06:59 14:59 Intake Total 770 300 Output Total 400 200 Balance 370 100 Lab Results Last 24 Hours: Laboratory Results - last 24 hr 07/14/20 07/14/20 07/15/20 Range/Units 06:00 06:00 05:16 WBC 2.83 L (3.98-10.04) K/mm3 RBC 4.62 (3.98-5.22) M/mm3 Hgb 13.9 (11.2-15.7) gm/dl Hct 41.6 (34.1-44.9) % MCV 90.0 (79.4-94.8) fl MCH 30.1 (25.6-32.2) pg MCHC 33.4 (32.2-35.5) g/dl RDW Std Deviation 43.4 (36.4-46.3) fL Plt Count 144 L (182-369) K/mm3 MPV 10.2 (9.4-12.3) fl Neut % (Auto) 49.7 (34.0-71.1) % Lymph % (Auto) 38.2 (19.3-51.7) % Davis % (Auto) 11.7 (4.7-12.5) % Eos % (Auto) 0 L (0.7-5.8) Baso % (Auto) 0.4 (0.1-1.2) % Neut # (Auto) 1.41 L (1.56-6.13) K/mm3 Lymph # (Auto) 1.08 L (1.18-3.74) K/mm3 Davis # (Auto) 0.33 (0.24-0.36) K/mm3 Eos # (Auto) 0.00 L (0.04-0.36) K/mm3 Baso # (Auto) 0.01 (0.01-0.08) K/mm3 Manual Slide Review Abnormal smear D-Dimer, Quantitative (0.19-0.50) mg/L Sodium (136-145) mEq/L Potassium (3.5-5.1) mEq/L Chloride (98-107) mEq/L Carbon Dioxide (21-32) mEq/L Anion Gap (5-15) BUN (7-18) mg/dL Creatinine (0.55-1.02) mg/dL Est Cr Clr Drug Dosing mL/min Estimated GFR (MDRD) (>60) mL/min BUN/Creatinine Ratio (14-18) Glucose (70-99) mg/dL Calcium (8.5-10.1) mg/dL Magnesium (1.8-2.4) mg/dL Total Bilirubin (0.2-1.0) mg/dL AST (15-37) U/L ALT (14-59) U/L Alkaline Phosphatase (46-116) U/L C-Reactive Protein (<1.0) mg/dL Total Protein (6.4-8.2) g/dl Albumin (3.4-5.0) g/dl Globulin gm/dL Albumin/Globulin Ratio (1-2) Vitamin D 25-Hydroxy 31.7 (30.0-100.0) ng/ml HCG, Qual Negative (NEGATIVE) 07/15/20 07/15/20 Range/Units 05:16 05:16 WBC (3.98-10.04) K/mm3 RBC (3.98-5.22) M/mm3 Hgb (11.2-15.7) gm/dl Hct (34.1-44.9) % MCV (79.4-94.8) fl MCH (25.6-32.2) pg MCHC (32.2-35.5) g/dl RDW Std Deviation (36.4-46.3) fL Plt Count (182-369) K/mm3 MPV (9.4-12.3) fl Neut % (Auto) (34.0-71.1) % Lymph % (Auto) (19.3-51.7) % Davis % (Auto) (4.7-12.5) % Eos % (Auto) (0.7-5.8) Baso % (Auto) (0.1-1.2) % Neut # (Auto) (1.56-6.13) K/mm3 Lymph # (Auto) (1.18-3.74) K/mm3 Davis # (Auto) (0.24-0.36) K/mm3 Eos # (Auto) (0.04-0.36) K/mm3 Baso # (Auto) (0.01-0.08) K/mm3 Manual Slide Review D-Dimer, Quantitative 0.79 H (0.19-0.50) mg/L Sodium 143 (136-145) mEq/L Potassium 3.9 (3.5-5.1) mEq/L Chloride 107 (98-107) mEq/L Carbon Dioxide 24 (21-32) mEq/L Anion Gap 15.9 H (5-15) BUN 11 (7-18) mg/dL Creatinine 0.8 (0.55-1.02) mg/dL Est Cr Clr Drug Dosing 86.75 mL/min Estimated GFR (MDRD) > 60 (>60) mL/min BUN/Creatinine Ratio 13.8 L (14-18) Glucose 140 H (70-99) mg/dL Calcium 8.3 L (8.5-10.1) mg/dL Magnesium 2.2 (1.8-2.4) mg/dL Total Bilirubin 0.5 (0.2-1.0) mg/dL AST 92 H (15-37) U/L ALT 79 H (14-59) U/L Alkaline Phosphatase 63 (46-116) U/L C-Reactive Protein 2.8 H* (<1.0) mg/dL Total Protein 7.0 (6.4-8.2) g/dl Albumin 2.9 L (3.4-5.0) g/dl Globulin 4.1 gm/dL Albumin/Globulin Ratio 0.7 L (1-2) Vitamin D 25-Hydroxy (30.0-100.0) ng/ml HCG, Qual (NEGATIVE) Med Orders - Current: Current Medications Acetaminophen (Acetaminophen 325 Mg Tab) 975 mg PO Q4H PRN PRN Reason: Pain/Fever Albuterol (Albuterol 6.7 Gm Inhaler) 0 gm INH Q2H PRN PRN Reason: SOB/Wheezing Aspirin (Aspirin 81 Mg Tab.Chew) 81 mg PO DAILY [facility] Last Admin: 07/14/20 12:52 Dose: 81 mg Documented by: Cholecalciferol (Cholecalciferol (Vitamin D3) 5,000 Unit Cap) 5,000 unit PO DAILY [facility] Last Admin: 07/14/20 09:14 Dose: 5,000 unit Documented by: Dexamethasone (Dexamethasone 4 Mg Tab) 6 mg PO DAILY [facility] Stop: 07/22/20 09:01 Last Admin: 07/14/20 09:15 Dose: 6 mg Documented by: Enoxaparin Sodium (Enoxaparin 100 Mg/1 Ml Syringe) 100 mg SUBCUT Q24H [facility] Last Admin: 07/14/20 22:38 Dose: 100 mg Documented by: Famotidine (Famotidine 20 Mg Tab) 20 mg PO BID [facility] Last Admin: 07/14/20 22:37 Dose: 20 mg Documented by: Remdesivir 100 mg/ Sodium (Chloride) 100 mls @ 100 mls/hr IV Q24H [facility] Stop: 07/18/20 00:29 Last Admin: 07/14/20 22:38 Dose: 100 mls/hr Documented by: Ondansetron HCl (Ondansetron 4 Mg/2 Ml Sdv) 4 mg IVPUSH Q6H PRN PRN Reason: Nausea/Vomiting Sodium Chloride (Sodium Chloride 0.9% 10 Ml Syringe) 10 ml FLUSH ASDIRECTED PRN PRN Reason: Keep Vein Open Last Admin: 07/13/20 22:53 Dose: 10 ml Documented by: Zinc Sulfate (Zinc Sulfate 220 Mg Cap) 220 mg PO DAILY [facility] Last Admin: 07/14/20 09:14 Dose: 220 mg Documented by: Discontinued Medications Albuterol (Albuterol 6.7 Gm Inhaler) 0 gm INH ONETIME ONE Stop: 07/13/20 22:22 Last Admin: 07/13/20 22:58 Dose: 2 puff Documented by: Dexamethasone (Dexamethasone 4 Mg/Ml Sdv) 6 mg IVPUSH ONETIME ONE Stop: 07/13/20 22:22 Last Admin: 07/13/20 22:53 Dose: 6 mg Documented by: Enoxaparin Sodium (Enoxaparin 100 Mg/1 Ml Syringe) 100 mg SUBCUT ONETIME ONE Stop: 07/14/20 00:11 Last Admin: 07/14/20 01:10 Dose: 100 mg Documented by: Sodium Chloride (Normal Saline) 1,000 mls @ 1,000 mls/hr IV .BOLUS [facility] Last Admin: 07/13/20 22:53 Dose: 1,000 mls/hr Documented by: Remdesivir 200 mg/ Sodium (Chloride) 250 mls @ 250 mls/hr IV ONETIME ONE Stop: 07/13/20 23:57 Last Admin: 07/14/20 00:23 Dose: 250 mls/hr Documented by: Sodium Chloride (Normal Saline) 100 mls @ 75 mls/hr IV ASDIRECTED [facility] Stop: 07/14/20 13:00 Last Admin: 07/14/20 10:46 Dose: 75 mls/hr Documented by: Iopamidol (Iopamidol 755 Mg/Ml 100 Ml Bottle) 100 ml IVPUSH ONETIME ONE Stop: 07/14/20 09:48 Last Admin: 07/14/20 10:46 Dose: 100 ml Documented by: Norgestrel-Ethinyl Estradiol [Cryselle- 28 Tablet] Pt Own 0 each PO ASDIRECTED [facility] Sodium Chloride (Sodium Chloride 0.9% 10 Ml Syringe) 10 ml FLUSH ONETIME PRN PRN Reason: IV FLUSH Last Admin: 07/14/20 10:47 Dose: 10 ml Documented by: - Exam Quality Assessment: DVT Prophylaxis. No: Supplemental Oxygen, Urine Catheter General: Alert, Oriented, Cooperative, No Acute Distress HEENT: Pupils Equal, Pupils Reactive, Mucous Membr. Moist/[place] Neck: Supple, Trachea Midline Lungs: Normal Respiratory Effort, Decreased Breath Sounds. No: Crackles, Wheezing Cardiovascular: Regular Rate, Regular Rhythm GI/Abdominal Exam: Normal Bowel Sounds, Soft, Non-Tender, No Distention (Female) Exam: Deferred Back Exam: Normal Inspection, Full Range of Motion Extremities: Normal Inspection, Normal Range of Motion, Non-Tender, No Pedal E donita, Normal Capillary Refill Peripheral Pulses: 2+: Radial (L), Radial (R), Dorsalis Pedis (L), Dorsalis Pedis (R) Skin: Warm, Dry, Intact Neurological: No New Focal Deficit Psy/Mental Status: Alert, Normal Affect, Normal Mood - Patient Data Lab Results Last 24 hrs: Laboratory Results - last 24 hr 07/14/20 07/14/20 07/15/20 Range/Units 06:00 06:00 05:16 WBC 2.83 L (3.98-10.04) K/mm3 RBC 4.62 (3.98-5.22) M/mm3 Hgb 13.9 (11.2-15.7) gm/dl Hct 41.6 (34.1-44.9) % MCV 90.0 (79.4-94.8) fl MCH 30.1 (25.6-32.2) pg MCHC 33.4 (32.2-35.5) g/dl RDW Std Deviation 43.4 (36.4-46.3) fL Plt Count 144 L (182-369) K/mm3 MPV 10.2 (9.4-12.3) fl Neut % (Auto) 49.7 (34.0-71.1) % Lymph % (Auto) 38.2 (19.3-51.7) % Davis % (Auto) 11.7 (4.7-12.5) % Eos % (Auto) 0 L (0.7-5.8) Baso % (Auto) 0.4 (0.1-1.2) % Neut # (Auto) 1.41 L (1.56-6.13) K/mm3 Lymph # (Auto) 1.08 L (1.18-3.74) K/mm3 Davis # (Auto) 0.33 (0.24-0.36) K/mm3 Eos # (Auto) 0.00 L (0.04-0.36) K/mm3 Baso # (Auto) 0.01 (0.01-0.08) K/mm3 Manual Slide Review Abnormal smear D-Dimer, Quantitative (0.19-0.50) mg/L Sodium (136-145) mEq/L Potassium (3.5-5.1) mEq/L Chloride (98-107) mEq/L Carbon Dioxide (21-32) mEq/L Anion Gap (5-15) BUN (7-18) mg/dL Creatinine (0.55-1.02) mg/dL Est Cr Clr Drug Dosing mL/min Estimated GFR (MDRD) (>60) mL/min BUN/Creatinine Ratio (14-18) Glucose (70-99) mg/dL Calcium (8.5-10.1) mg/dL Magnesium (1.8-2.4) mg/dL Total Bilirubin (0.2-1.0) mg/dL AST (15-37) U/L ALT (14-59) U/L Alkaline Phosphatase (46-116) U/L C-Reactive Protein (<1.0) mg/dL Total Protein (6.4-8.2) g/dl Albumin (3.4-5.0) g/dl Globulin gm/dL Albumin/Globulin Ratio (1-2) Vitamin D 25-Hydroxy 31.7 (30.0-100.0) ng/ml HCG, Qual Negative (NEGATIVE) 07/15/20 07/15/20 Range/Units 05:16 05:16 WBC (3.98-10.04) K/mm3 RBC (3.98-5.22) M/mm3 Hgb (11.2-15.7) gm/dl Hct (34.1-44.9) % MCV (79.4-94.8) fl MCH (25.6-32.2) pg MCHC (32.2-35.5) g/dl RDW Std Deviation (36.4-46.3) fL Plt Count (182-369) K/mm3 MPV (9.4-12.3) fl Neut % (Auto) (34.0-71.1) % Lymph % (Auto) (19.3-51.7) % Davis % (Auto) (4.7-12.5) % Eos % (Auto) (0.7-5.8) Baso % (Auto) (0.1-1.2) % Neut # (Auto) (1.56-6.13) K/mm3 Lymph # (Auto) (1.18-3.74) K/mm3 Davis # (Auto) (0.24-0.36) K/mm3 Eos # (Auto) (0.04-0.36) K/mm3 Baso # (Auto) (0.01-0.08) K/mm3 Manual Slide Review D-Dimer, Quantitative 0.79 H (0.19-0.50) mg/L Sodium 143 (136-145) mEq/L Potassium 3.9 (3.5-5.1) mEq/L Chloride 107 (98-107) mEq/L Carbon Dioxide 24 (21-32) mEq/L Anion Gap 15.9 H (5-15) BUN 11 (7-18) mg/dL Creatinine 0.8 (0.55-1.02) mg/dL Est Cr Clr Drug Dosing 86.75 mL/min Estimated GFR (MDRD) > 60 (>60) mL/min BUN/Creatinine Ratio 13.8 L (14-18) Glucose 140 H (70-99) mg/dL Calcium 8.3 L (8.5-10.1) mg/dL Magnesium 2.2 (1.8-2.4) mg/dL Total Bilirubin 0.5 (0.2-1.0) mg/dL AST 92 H (15-37) U/L ALT 79 H (14-59) U/L Alkaline Phosphatase 63 (46-116) U/L C-Reactive Protein 2.8 H* (<1.0) mg/dL Total Protein 7.0 (6.4-8.2) g/dl Albumin 2.9 L (3.4-5.0) g/dl Globulin 4.1 gm/dL Albumin/Globulin Ratio 0.7 L (1-2) Vitamin D 25-Hydroxy (30.0-100.0) ng/ml HCG, Qual (NEGATIVE) Result Diagrams: 07/15/20 05:16 07/15/20 05:16 Sepsis Event Note - Evaluation Sepsis Screening Result: No Definite Risk - Focused Exam Vital Signs: Vital Signs Temp Pulse Resp BP Pulse Ox Pulse Ox 07/15/20 06:18 91 L 07/15/20 03:41 97.9 F 67 20 113/72 89 L 07/14/20 20:18 98.1 F 74 20 123/66 94 L - Problem List & Annotations (1) COVID-19 SNOMED Code(s): 931737377 Code(s): U07.1 - COVID-19 Status: Acute Current Visit: Yes (2) Elevated d-dimer SNOMED Code(s): 091814368 Code(s): R79.89 - OTHER SPECIFIED ABNORMAL FINDINGS OF BLOOD CHEMISTRY Status: Acute Current Visit: Yes (3) Hypoxia SNOMED Code(s): 357976337 Code(s): R09.02 - HYPOXEMIA Status: Acute Current Visit: Yes - Problem List Review Problem List Initiated/Reviewed/Updated: Yes - My Orders Last 24 Hours: My Active Orders 07/14/20 07:45 Height and Weight [RC] 06 Intake and Output [RC] 04,16 Pulse Oximetry [RC] CONTINUOUS RT Chest Physiotherapy [RC] ASDIRECTED RT Incentive Spirometry [RC] ASDIRECTED Up With Assistance [RC] BID Vital Signs [RC] 08,16,20,04 Albuterol [Proventil HFA] See Dose Instructions INH Q2H PRN Isolation [COMM] Routine 07/14/20 07:47 Respiratory Care Assess and Treatment [CONS] Routine 07/14/20 07:48 Positioning, Patient [RC] ASDIRECTED 07/14/20 09:00 Cholecalciferol (Vitamin D3) [Vitamin D3] 5,000 unit PO DAILY Famotidine [Pepcid] 20 mg PO BID Zinc Sulfate [Zincate] 220 mg PO DAILY dexAMETHasone 6 mg PO DAILY 07/14/20 11:30 Aspirin 81 mg PO DAILY 07/14/20 23:30 Remdesivir 100 mg Sodium Chloride 0.9% [Normal Saline] 100 ml IV Q24H 07/15/20 07:55 A1C [GLYCOSYLATED HEMOGLOBIN,HGBA1C] [CHEM] Routine 07/16/20 05:11 C-REACTIVE PROTEIN [CHEM] AM CBC WITH AUTO DIFF [HEME] AM COMPREHENSIVE METABOLIC PN,CMP [CHEM] AM MAGNESIUM [CHEM] AM 07/17/20 05:11 C-REACTIVE PROTEIN [CHEM] AM CBC WITH AUTO DIFF [HEME] AM COMPREHENSIVE METABOLIC PN,CMP [CHEM] AM D-DIMER QUANTITATIVE [COAG] Q48H MAGNESIUM [CHEM] AM 07/18/20 05:11 C-REACTIVE PROTEIN [CHEM] AM CBC WITH AUTO DIFF [HEME] AM COMPREHENSIVE METABOLIC PN,CMP [CHEM] AM MAGNESIUM [CHEM] AM 07/19/20 05:11 D-DIMER QUANTITATIVE [COAG] Q48H - Assessment Assessment:: Assessment- day of admission 07/14/2020 * 49-year-old female presents to ED with SLB, cough, generalized weakness, diarrhea * Reports symptoms began on 07/10/2020 but have been getting worse * Saturations 88% on room air noted in ED * No significant medical history but is on control * Twelve-lead EKG obtained in ED shows sinus tachycardia at 102 bpm with no ectopy * Chest x-ray shows nothing acute * Will hold off PT/OT for now * Labs in ED: * WBC 2.63 * Hemoglobin 14.5 * Platelet 133,000 * Neutrophils 52.9% * INR 0.69 * D-dimer 1.22 * Sodium 140 * Potassium 3.3 * Chloride 102 * Carbon dioxide 22 * Anion gap 19.3 * BUN 11, creatinine 1.1, GFR 53 * Glucose 141 * Total bilirubin 0.6 * AST 85, ALT 68, alkaline phosphatase 69 * Troponin less than 0.017 * CRP 3.9 * Albumin 3.4 * Lactic acid 1.0 * proBNP 12 * SARS Covid 2 RNA positive * Given a 1 L fluid bolus, albuterol MDI, 6 mg dexamethasone and 200 mg remdesivir * Admitted to the floor inpatient with telemetry for management of COVID-19 with hypoxia 07/15/2020 Is a 49-year-old female admitted to the floor for management of her COVID-19 pneumonia. CTA was obtained yesterday to rule out PE and was negative. Bilateral infiltrates compatible with COVID-19 pneumonia were noted. Overall she has been doing quite well. She reports her diarrhea has improved. Her dyspnea has also improved and she really only notices it now when walking. Reports a continuing cough with sputum which has increased. She has been weaned off of oxygen as of today. WBC is 2.83. Platelets 144,000. D-dimer has improved to 0.79. Sodium 143. Potassium 3.9. Anion gap is 15.9. BUN is 11, creatinine 0.8, GFR greater than 60. Glucose 140. Calcium is 8.3. AST is 92, ALT 79, alkaline phosphatase 63. CRP is down to 2.8. Albumin is 2.9. We will continue current plan of care. Will consider discharge tomorrow pending patient improved and continued stability. - Plan Plan:: COVID-19 Hypoxia Elevated D-Dimer * Remdesivir - day 04/10 * Dexamethasone 6mg - Day 04/15 * CXR shows nothing acute so will hold off ABX for now * O2 as needed with goal saturations of 88-95% * IS/Acapella * RT consultation * Prone whenever able * PRN albuterol inhaler * Lovenox 1mg/kg daily * Tylenol PRN for fever/pain * Daily labs * D-Dimer Q48 hours * Pepcid 20mg BID * Zinc supplementation * Vitamin D supplementation * Daily 81mg ASA * Telemetry * Continuous pulse oximetry * Airborne/contact isolation Code status: Full code PCP: Juliet Wade NP DVT prophylaxis: 1mg/kg Lovenox Disposition: Patient admitted to [facility] with telemetry for management of COVID- 19 symptoms, including hypoxia. Anticipated length of stay 4 to 5 days, although could be sooner if patient is able to wean off of oxygen. <Rangel Peterson Jr - Last Filed: 07/15/20 16:07> - Patient Data Vitals - Most Recent: Last Vital Signs Temp 97.9 F 07/15/20 15:43 Pulse 71 07/15/20 15:43 Resp 20 07/15/20 15:43 BP 106/64 07/15/20 15:43 Pulse Ox 94 L 07/15/20 15:43 I&O - Last 24 Hours: Intake & Output 07/15/20 07/15/20 07/15/20 06:59 14:59 22:59 Intake Total 300 120 600 Output Total 200 Balance 100 120 600 Lab Results Last 24 Hours: Laboratory Results - last 24 hr 07/15/20 07/15/20 07/15/20 Range/Units 05:16 05:16 05:16 WBC 2.83 L (3.98-10.04) K/mm3 RBC 4.62 (3.98-5.22) M/mm3 Hgb 13.9 (11.2-15.7) gm/dl Hct 41.6 (34.1-44.9) % MCV 90.0 (79.4-94.8) fl MCH 30.1 (25.6-32.2) pg MCHC 33.4 (32.2-35.5) g/dl RDW Std Deviation 43.4 (36.4-46.3) fL Plt Count 144 L (182-369) K/mm3 MPV 10.2 (9.4-12.3) fl Neut % (Auto) 49.7 (34.0-71.1) % Lymph % (Auto) 38.2 (19.3-51.7) % Davis % (Auto) 11.7 (4.7-12.5) % Eos % (Auto) 0 L (0.7-5.8) Baso % (Auto) 0.4 (0.1-1.2) % Neut # (Auto) 1.41 L (1.56-6.13) K/mm3 Lymph # (Auto) 1.08 L (1.18-3.74) K/mm3 Davis # (Auto) 0.33 (0.24-0.36) K/mm3 Eos # (Auto) 0.00 L (0.04-0.36) K/mm3 Baso # (Auto) 0.01 (0.01-0.08) K/mm3 Manual Slide Review Abnormal smear D-Dimer, Quantitative 0.79 H (0.19-0.50) mg/L Sodium 143 (136-145) mEq/L Potassium 3.9 (3.5-5.1) mEq/L Chloride 107 (98-107) mEq/L Carbon Dioxide 24 (21-32) mEq/L Anion Gap 15.9 H (5-15) BUN 11 (7-18) mg/dL Creatinine 0.8 (0.55-1.02) mg/dL Est Cr Clr Drug Dosing 86.75 mL/min Estimated GFR (MDRD) > 60 (>60) mL/min BUN/Creatinine Ratio 13.8 L (14-18) Glucose 140 H (70-99) mg/dL Calcium 8.3 L (8.5-10.1) mg/dL Magnesium 2.2 (1.8-2.4) mg/dL Total Bilirubin 0.5 (0.2-1.0) mg/dL AST 92 H (15-37) U/L ALT 79 H (14-59) U/L Alkaline Phosphatase 63 (46-116) U/L C-Reactive Protein 2.8 H* (<1.0) mg/dL Total Protein 7.0 (6.4-8.2) g/dl Albumin 2.9 L (3.4-5.0) g/dl Globulin 4.1 gm/dL Albumin/Globulin Ratio 0.7 L (1-2) Med Orders - Current: Current Medications Acetaminophen (Acetaminophen 325 Mg Tab) 975 mg PO Q4H PRN PRN Reason: Pain/Fever Albuterol (Albuterol 6.7 Gm Inhaler) 0 gm INH Q2H PRN PRN Reason: SOB/Wheezing Aspirin (Aspirin 81 Mg Tab.Chew) 81 mg PO DAILY [facility] Last Admin: 07/15/20 08:23 Dose: 81 mg Documented by: Cholecalciferol (Cholecalciferol (Vitamin D3) 5,000 Unit Cap) 5,000 unit PO DAILY [facility] Last Admin: 07/15/20 08:23 Dose: 5,000 unit Documented by: Dexamethasone (Dexamethasone 4 Mg Tab) 6 mg PO DAILY [facility] Stop: 07/22/20 09:01 Last Admin: 07/15/20 08:24 Dose: 6 mg Documented by: Enoxaparin Sodium (Enoxaparin 100 Mg/1 Ml Syringe) 100 mg SUBCUT Q24H [facility] Last Admin: 07/14/20 22:38 Dose: 100 mg Documented by: Famotidine (Famotidine 20 Mg Tab) 20 mg PO BID [facility] Last Admin: 07/15/20 08:23 Dose: 20 mg Documented by: Remdesivir 100 mg/ Sodium (Chloride) 100 mls @ 100 mls/hr IV Q24H [facility] Stop: 07/18/20 00:29 Last Admin: 07/14/20 22:38 Dose: 100 mls/hr Documented by: Ondansetron HCl (Ondansetron 4 Mg/2 Ml Sdv) 4 mg IVPUSH Q6H PRN PRN Reason: Nausea/Vomiting Sodium Chloride (Sodium Chloride 0.9% 10 Ml Syringe) 10 ml FLUSH ASDIRECTED PRN PRN Reason: Keep Vein Open Last Admin: 07/13/20 22:53 Dose: 10 ml Documented by: Zinc Sulfate (Zinc Sulfate 220 Mg Cap) 220 mg PO DAILY [facility] Last Admin: 07/15/20 08:23 Dose: 220 mg Documented by: Discontinued Medications Albuterol (Albuterol 6.7 Gm Inhaler) 0 gm INH ONETIME ONE Stop: 07/13/20 22:22 Last Admin: 07/13/20 22:58 Dose: 2 puff Documented by: Dexamethasone (Dexamethasone 4 Mg/Ml Sdv) 6 mg IVPUSH ONETIME ONE Stop: 07/13/20 22:22 Last Admin: 07/13/20 22:53 Dose: 6 mg Documented by: Enoxaparin Sodium (Enoxaparin 100 Mg/1 Ml Syringe) 100 mg SUBCUT ONETIME ONE Stop: 07/14/20 00:11 Last Admin: 07/14/20 01:10 Dose: 100 mg Documented by: Sodium Chloride (Normal Saline) 1,000 mls @ 1,000 mls/hr IV .BOLUS [facility] Last Admin: 07/13/20 22:53 Dose: 1,000 mls/hr Documented by: Remdesivir 200 mg/ Sodium (Chloride) 250 mls @ 250 mls/hr IV ONETIME ONE Stop: 07/13/20 23:57 Last Admin: 07/14/20 00:23 Dose: 250 mls/hr Documented by: Sodium Chloride (Normal Saline) 100 mls @ 75 mls/hr IV ASDIRECTED [facility] Stop: 07/14/20 13:00 Last Admin: 07/14/20 10:46 Dose: 75 mls/hr Documented by: Iopamidol (Iopamidol 755 Mg/Ml 100 Ml Bottle) 100 ml IVPUSH ONETIME ONE Stop: 07/14/20 09:48 Last Admin: 07/14/20 10:46 Dose: 100 ml Documented by: Norgestrel-Ethinyl Estradiol [Cryselle- 28 Tablet] Pt Own 0 each PO ASDIRECTED [facility] Sodium Chloride (Sodium Chloride 0.9% 10 Ml Syringe) 10 ml FLUSH ONETIME PRN PRN Reason: IV FLUSH Last Admin: 07/14/20 10:47 Dose: 10 ml Documented by: - Patient Data Lab Results Last 24 hrs: Laboratory Results - last 24 hr 07/15/20 07/15/20 07/15/20 Range/Units 05:16 05:16 05:16 WBC 2.83 L (3.98-10.04) K/mm3 RBC 4.62 (3.98-5.22) M/mm3 Hgb 13.9 (11.2-15.7) gm/dl Hct 41.6 (34.1-44.9) % MCV 90.0 (79.4-94.8) fl MCH 30.1 (25.6-32.2) pg MCHC 33.4 (32.2-35.5) g/dl RDW Std Deviation 43.4 (36.4-46.3) fL Plt Count 144 L (182-369) K/mm3 MPV 10.2 (9.4-12.3) fl Neut % (Auto) 49.7 (34.0-71.1) % Lymph % (Auto) 38.2 (19.3-51.7) % Davis % (Auto) 11.7 (4.7-12.5) % Eos % (Auto) 0 L (0.7-5.8) Baso % (Auto) 0.4 (0.1-1.2) % Neut # (Auto) 1.41 L (1.56-6.13) K/mm3 Lymph # (Auto) 1.08 L (1.18-3.74) K/mm3 Davis # (Auto) 0.33 (0.24-0.36) K/mm3 Eos # (Auto) 0.00 L (0.04-0.36) K/mm3 Baso # (Auto) 0.01 (0.01-0.08) K/mm3 Manual Slide Review Abnormal smear D-Dimer, Quantitative 0.79 H (0.19-0.50) mg/L Sodium 143 (136-145) mEq/L Potassium 3.9 (3.5-5.1) mEq/L Chloride 107 (98-107) mEq/L Carbon Dioxide 24 (21-32) mEq/L Anion Gap 15.9 H (5-15) BUN 11 (7-18) mg/dL Creatinine 0.8 (0.55-1.02) mg/dL Est Cr Clr Drug Dosing 86.75 mL/min Estimated GFR (MDRD) > 60 (>60) mL/min BUN/Creatinine Ratio 13.8 L (14-18) Glucose 140 H (70-99) mg/dL Calcium 8.3 L (8.5-10.1) mg/dL Magnesium 2.2 (1.8-2.4) mg/dL Total Bilirubin 0.5 (0.2-1.0) mg/dL AST 92 H (15-37) U/L ALT 79 H (14-59) U/L Alkaline Phosphatase 63 (46-116) U/L C-Reactive Protein 2.8 H* (<1.0) mg/dL Total Protein 7.0 (6.4-8.2) g/dl Albumin 2.9 L (3.4-5.0) g/dl Globulin 4.1 gm/dL Albumin/Globulin Ratio 0.7 L (1-2) Result Diagrams: 07/15/20 05:16 07/15/20 05:16 Sepsis Event Note - Focused Exam Vital Signs: Vital Signs Temp Pulse Resp BP Pulse Ox Pulse Ox Pulse Ox 07/15/20 15:43 97.9 F 71 20 106/64 94 L 07/15/20 12:29 93 L 07/15/20 07:50 97.7 F 71 20 129/96 H 95 07/15/20 06:18 91 L - My Orders Last 24 Hours: My Active Orders 07/14/20 21:00 Enoxaparin [Lovenox] 100 mg SUBCUT Q24H - Plan Plan:: Case reviewed and preceptored. Agree with evaluation, assessment and plan. -Andrew Muse Jr., DO
[2020-07-15] MEDS: Famotidine 20 MG Tab PO SCH ×2 (08:23→21:46)
[2020-07-15] MEDS: Zinc Sulfate 220 MG Cap PO SCH (08:23)
[2020-07-15] MEDS: Aspirin 81 MG Tab.Chew PO SCH (08:23)
[2020-07-15] MEDS: Cholecalciferol (Vitamin D3) 5,000 UNIT Cap PO SCH (08:23)
[2020-07-15] MEDS: Dexamethasone 4 MG Tab PO SCH (08:24)
[2020-07-15] MEDS: Enoxaparin 100 MG/1 ML Syringe SUBCUT SCH (21:45)
[2020-07-15] MEDS: REMDESIVIR 100 MG in Sodium Chloride 0.9% 100 ML IV SCH ×2 (21:46→23:38)
[2020-07-16 07:38] VITALS: BP 112/66; PULSE 63
[2020-07-16] MEDS: Cholecalciferol (Vitamin D3) 5,000 UNIT Cap PO SCH (08:10)
[2020-07-16] MEDS: Dexamethasone 4 MG Tab PO SCH (08:10)
[2020-07-16] MEDS: Famotidine 20 MG Tab PO SCH (08:10)
[2020-07-16] MEDS: Zinc Sulfate 220 MG Cap PO SCH (08:11)
[2020-07-16] MEDS: Aspirin 81 MG Tab.Chew PO SCH (08:11)
--- NOTE | 2020-07-16 08:59 | PCM.DCSUM1 ---
<Vel Little - Last Filed: 07/16/20 09:33> Discharge Summary - Hospital Course HPI Initial Comments: This is a 49-year-old female presented to ED on 07/13/2020 during the late night hours with shortness of breath, cough, generalized weakness, and diarrhea. Reports symptoms began on 07/10/2020 but have worsened in the past 2 days. Reports she can only speak in 1-2 word sentences, has no appetite, has fever and chills and congestion. Denies chest pain, abdominal pain, leg pain, or swelling . Denies any prior lung problems or cardiac disease. She is not a smoker. She was noted to have saturations around 88% on room air in the ED although these did fluctuate. Twelve-lead EKG is obtained showing a sinus tachycardia 102 bpm with no signs of any ectopy. Temp is 99.9. Respirations 37. Blood pressure 125/75. Labs are obtained showing a leukopenia at 2.63. Hemoglobin is 14.5. Platelets are low at 133,000. Neutrophils are 52.9%. INR 0.96. aPTT is 30.5. D-dimer is 1.22. Sodium is 140. Potassium 3.3. Chloride 102. Carbon dioxide 22. Anion gap is 19.3. BUN is 11. Creatinine 1.1. GFR is 53. Glucose is 141. Total bilirubin 0.6. AST is 85, ALT 60, alkaline phosphatase 69. Troponin is less than 0.017. CRP is 3.9. Albumin is 3.4. Lactic acid is 1.0. proBNP is 12. SARS Covid 2 RNA is positive. She is given albuterol inhaler, 6 mg IV push dexamethasone and started on remdesivir. Chest x-ray is obtained showing nothing acute. She is requiring 2 L of oxygen. She denies any prior medical history and is on control. She is subsequently mated to the medical floor for management of her COVID-19 pneumonia and hypoxia. Diagnosis: Stroke: No - Discharge Data Discharge Date: 07/16/20 (Admit date: 07/14/2020) Discharge Disposition: Home, Self-Care 01 Condition: Good - Referral to Home Health Primary Care Physician: Juliet Wade NP - Discharge Diagnosis/Problem(s) (1) COVID-19 SNOMED Code(s): 437748420 ICD Code: U07.1 - COVID-19 Status: Acute (2) Elevated d-dimer SNOMED Code(s): 544420248 ICD Code: R79.89 - OTHER SPECIFIED ABNORMAL FINDINGS OF BLOOD CHEMISTRY Status: Acute (3) Hypoxia SNOMED Code(s): 535101940 ICD Code: R09.02 - HYPOXEMIA Status: Acute - Patient Summary/Data Consults: Consultations 07/14/20 07:47 Respiratory Care Assess and Treatment [CONS] Routine Labs Pending at D/C: Hgb A1C Recommended Follow-up Testing/Procedures: Follow-up with primary care provider within 7 to 10 days of discharge, sooner if needed. -Recommend repeat CBC, CMP, and magnesium at that visit. -Consider repeat chest x-ray in follow-up. Hospital Course: This is a 49-year-old female who presented to ED on 07/14/2020 with shortness of breath, cough, generalized weakness, and diarrhea. She reports symptoms originally began on 07/10/2020 but have been getting worse. She is noted to have saturations of 88% on room air in the ED. She has no past medical history but is on control. Chest x-ray was obtained in the ED and showed nothing acute. On admission D-dimer was noted to be elevated at 1.22 and patient was noted to be significantly dyspneic with exertion. CTA was obtained to rule out PE and was negative however bilateral infiltrates compatible with COVID-19 pneumonia were noted. She was started on remdesivir and 6 mg dexamethasone. She received 4 days of dexamethasone and 3 days of remdesivir. Her oxygen saturations rapidly improved and she was able to be weaned off of oxygen on 07/15/2020. Her diarrhea did resolve. She was ambulating around the room without difficulty. She was utilizing her incentive spirometer and Acapella. She was started on 81 mg aspirin and 1 mg/kg of Lovenox for concern over coagulopathies. She was also started on zinc supplementation, vitamin D supplementation, and 20 mg twice daily Pepcid. Repeat D-dimer was obtained and was 0.79. Vitamin D was on the low end of normal at 31.7. As noted she has been rapidly improving and her lung sounds greatly improved. Her only complaint today was a mild cough. We discussed discharge and she felt that she feels she can maintain at home. She will be discharged on 12 more days of 100mg, or 1 mg/kg of daily Lovenox injections at the recommendation of Dr. Peterson. She will also be discharged on 81 mg daily aspirin, zinc supplementation, and 1000 units daily vitamin D supplementation. She requested something for cough and will be discharged on 100 mg 3 times daily as needed Tesconradoon Miriam as well. We will not prescribe her a steroid at discharge. She was instructed to continue to utilize her incentive spirometry and Acapella for 1-2 more weeks or until symptoms resolve. She was instructed to continue to prone. She was instructed to continue to isolate/quarantine for a total of 20 days from symptom onset. She was warned that she will likely be contacted by a family independence case manager for the [facility] and to follow their directions. Overall she has done very well. She will discharge home today. She was advised to return to the emergency room or contact her primary care provider should symptoms return or worsen. Recommend follow-up with primary care provider within 7 to 10 days of discharge, sooner if needed. Recommend repeat CBC, CMP, and magnesium at that visit. Consider repeat chest x-ray if indicated. - Patient Instructions Diet: Usual Diet as Tolerated Activity: As Tolerated Driving: Do Not Drive (until feeling better ) Showering/Bathing: May Shower Notify Provider of: Fever, Increased Pain, Nausea and/or Vomiting Other/Special Instructions: Follow-up with primary care provider within 7 to 10 days of discharge, sooner if needed. Some studies have shown a benefit for patients with Covid 19 who are on aspirin, zinc supplementation, and vitamin D supplementation. These medications have been sent to your pharmacy. You may discuss with your primary care provider whether to continue these in follow-up. Your labs have indicated that you are at risk for blood clots. Your chest scan was negative for any blood clots, which is great. We will give you a once daily injection called lovenox, which you will take as prescribed until gone which will help prevent blood clots. Recommend you continue to isolate/quarantine for a total of 20 days from symptom onset. You will likely be contacted by a family independence case manager from the [facility]. Follow their di rections. You completed your steroid treatment while here and are not requiring any oxygen, which is great. You were prescribed and as needed tablets for cough. Take this as prescribed. Continue to utilize your incentive spirometer (clear/blue device you inahle through) and Acapella (green tube you blow through) for 1 to 2 weeks or until symptoms resolve. Should symptoms return or worsen contact your primary care provider return the emergency room. - Discharge Plan *PRESCRIPTION DRUG MONITORING PROGRAM REVIEWED*: No *COPY OF PRESCRIPTION DRUG MONITORING REPORT IN PATIENT JUSTIN: No Prescriptions/Med Rec: Aspirin 81 mg PO DAILY #30 tab.chew Enoxaparin [Lovenox] 100 mg SUBCUT Q24H #12 syringe Benzonatate [Tessalon Perle] 100 mg PO TID PRN #15 capsule PRN Reason: Cough Cholecalciferol (Vitamin D3) [Vitamin D3] 1,000 unit PO DAILY #20 cap Zinc Sulfate [Zincate] 220 mg PO DAILY #20 cap Home Medications: Home Meds Aspirin 81 mg PO DAILY #30 tab.chew 07/16/20 [Rx] Benzonatate [Tessalon Perle] 100 mg PO TID PRN #15 capsule 07/16/20 [Rx] Cholecalciferol (Vitamin D3) [Vitamin D3] 1,000 unit PO DAILY #20 cap 07/16/20 [Rx] Enoxaparin [Lovenox] 100 mg SUBCUT Q24H #12 syringe 07/16/20 [Rx] Zinc Sulfate [Zincate] 220 mg PO DAILY #20 cap 07/16/20 [Rx] Oxygen Therapy Mode: Room Air Patient Handouts: COVID-19, Prevent the Spread of COVID-19 if You Are Sick - [facility] [place] Forms: ED Department Discharge Referrals: Juliet Wade DIE CAST OPERATOR [Primary Care Provider] - 07/27/20 1:15 pm (This appt. is to establish care and follow up visit from the hospital. Check in at 1:00) - Discharge Summary/Plan Comment DC Time >30 min.: Yes (45 mins ) - General Info Date of Service: 07/16/20 Admission Dx/Problem (Free Text: Admission Diagnosis/Problem Admission Diagnosis/Problem Pneumonia Functional Status: Reports: Pain Controlled, Tolerating Diet, Ambulating, Urinating, Incentive Spirometry, Other (Acapella). Denies: New Symptoms - Review of Systems General: Reports: No Symptoms. Denies: Fever, Weakness, Fatigue, Malaise, Chills HEENT: Reports: No Symptoms. Denies: Headaches, Sore Throat Pulmonary: Reports: Cough, Sputum. Denies: Shortness of Breath, Pleuritic Chest Pain, Wheezing Cardiovascular: Reports: No Symptoms. Denies: Chest Pain, Palpitations, Dyspnea on Exertion, Edema Gastrointestinal: Reports: No Symptoms. Denies: Abdominal Pain, Constipation, Diarrhea, Nausea, Vomiting Genitourinary: Reports: No Symptoms. Denies: Pain Musculoskeletal: Reports: No Symptoms Skin: Reports: No Symptoms. Denies: Cyanosis Neurological: Reports: No Symptoms. Denies: Confusion, Numbness, Pre-Existing Deficit, Tingling, Difficulty Walking, Weakness, Gait Disturbance Psychiatric: Reports: No Symptoms - Patient Data Vitals - Most Recent: Last Vital Signs Temp 97.9 F 07/16/20 07:21 Pulse 63 07/16/20 07:21 Resp 16 07/16/20 07:21 BP 112/66 07/16/20 07:21 Pulse Ox 91 L 07/16/20 07:21 Weight - Most Recent: 227 lb 8 oz I&O - Last 24 hours: Intake & Output 07/15/20 07/16/20 07/16/20 22:59 06:59 14:59 Intake Total 1190 600 Output Total 450 Balance 1190 150 Lab Results - Last 24 hrs: Laboratory Results - last 24 hr 07/16/20 07/16/20 Range/Units 04:51 04:51 WBC 3.80 L (3.98-10.04) K/mm3 RBC 4.58 (3.98-5.22) M/mm3 Hgb 13.8 (11.2-15.7) gm/dl Hct 41.5 (34.1-44.9) % MCV 90.6 (79.4-94.8) fl MCH 30.1 (25.6-32.2) pg MCHC 33.3 (32.2-35.5) g/dl RDW Std Deviation 43.6 (36.4-46.3) fL Plt Count 169 L (182-369) K/mm3 MPV 10.8 (9.4-12.3) fl Neut % (Auto) 57.8 (34.0-71.1) % Lymph % (Auto) 33.7 (19.3-51.7) % Henry % (Auto) 8.2 (4.7-12.5) % Eos % (Auto) 0 L (0.7-5.8) Baso % (Auto) 0.3 (0.1-1.2) % Neut # (Auto) 2.20 (1.56-6.13) K/mm3 Lymph # (Auto) 1.28 (1.18-3.74) K/mm3 Henry # (Auto) 0.31 (0.24-0.36) K/mm3 Eos # (Auto) 0.00 L (0.04-0.36) K/mm3 Baso # (Auto) 0.01 (0.01-0.08) K/mm3 Manual Slide Review Abnormal smear Sodium 138 (136-145) mEq/L Potassium 3.5 (3.5-5.1) mEq/L Chloride 107 (98-107) mEq/L Carbon Dioxide 25 (21-32) mEq/L Anion Gap 9.5 (5-15) BUN 13 (7-18) mg/dL Creatinine 0.8 (0.55-1.02) mg/dL Est Cr Clr Drug Dosing 86.75 mL/min Estimated GFR (MDRD) > 60 (>60) mL/min BUN/Creatinine Ratio 16.3 (14-18) Glucose 126 H (70-99) mg/dL Calcium 8.1 L (8.5-10.1) mg/dL Magnesium 2.1 (1.8-2.4) mg/dL Total Bilirubin 0.6 (0.2-1.0) mg/dL AST 309 H (15-37) U/L ALT 222 H (14-59) U/L Alkaline Phosphatase 57 (46-116) U/L C-Reactive Protein 1.3 H* (<1.0) mg/dL Total Protein 6.7 (6.4-8.2) g/dl Albumin 2.9 L (3.4-5.0) g/dl Globulin 3.8 gm/dL Albumin/Globulin Ratio 0.8 L (1-2) Med Orders - Current: Current Medications Acetaminophen (Acetaminophen 325 Mg Tab) 975 mg PO Q4H PRN PRN Reason: Pain/Fever Albuterol (Albuterol 6.7 Gm Inhaler) 0 gm INH Q2H PRN PRN Reason: SOB/Wheezing Aspirin (Aspirin 81 Mg Tab.Chew) 81 mg PO DAILY [facility] Last Admin: 07/16/20 08:11 Dose: 81 mg Documented by: Cholecalciferol (Cholecalciferol (Vitamin D3) 5,000 Unit Cap) 5,000 unit PO DAILY [facility] Last Admin: 07/16/20 08:10 Dose: 5,000 unit Documented by: Dexamethasone (Dexamethasone 4 Mg Tab) 6 mg PO DAILY [facility] Stop: 07/22/20 09:01 Last Admin: 07/16/20 08:10 Dose: 6 mg Documented by: Enoxaparin Sodium (Enoxaparin 100 Mg/1 Ml Syringe) 100 mg SUBCUT Q24H [facility] Last Admin: 07/15/20 21:45 Dose: 100 mg Documented by: Famotidine (Famotidine 20 Mg Tab) 20 mg PO BID [facility] Last Admin: 07/16/20 08:10 Dose: 20 mg Documented by: Remdesivir 100 mg/ Sodium (Chloride) 100 mls @ 100 mls/hr IV Q24H [facility] Stop: 07/18/20 00:29 Last Admin: 07/15/20 23:38 Dose: Not Given Documented by: Ondansetron HCl (Ondansetron 4 Mg/2 Ml Sdv) 4 mg IVPUSH Q6H PRN PRN Reason: Nausea/Vomiting Sodium Chloride (Sodium Chloride 0.9% 10 Ml Syringe) 10 ml FLUSH ASDIRECTED PRN PRN Reason: Keep Vein Open Last Admin: 07/13/20 22:53 Dose: 10 ml Documented by: Zinc Sulfate (Zinc Sulfate 220 Mg Cap) 220 mg PO DAILY [facility] Last Admin: 07/16/20 08:11 Dose: 220 mg Documented by: Discontinued Medications Albuterol (Albuterol 6.7 Gm Inhaler) 0 gm INH ONETIME ONE Stop: 07/13/20 22:22 Last Admin: 07/13/20 22:58 Dose: 2 puff Documented by: Dexamethasone (Dexamethasone 4 Mg/Ml Sdv) 6 mg IVPUSH ONETIME ONE Stop: 07/13/20 22:22 Last Admin: 07/13/20 22:53 Dose: 6 mg Documented by: Enoxaparin Sodium (Enoxaparin 100 Mg/1 Ml Syringe) 100 mg SUBCUT ONETIME ONE Stop: 07/14/20 00:11 Last Admin: 07/14/20 01:10 Dose: 100 mg Documented by: Sodium Chloride (Normal Saline) 1,000 mls @ 1,000 mls/hr IV .[facility] Last Admin: 07/13/20 22:53 Dose: 1,000 mls/hr Documented by: Remdesivir 200 mg/ Sodium (Chloride) 250 mls @ 250 mls/hr IV ONETIME ONE Stop: 07/13/20 23:57 Last Admin: 07/14/20 00:23 Dose: 250 mls/hr Documented by: Sodium Chloride (Normal Saline) 100 mls @ 75 mls/hr IV ASDIRECTED [facility]ER[facility] Stop: 07/14/20 13:00 Last Admin: 07/14/20 10:46 Dose: 75 mls/hr Documented by: Iopamidol (Iopamidol 755 Mg/Ml 100 Ml Bottle) 100 ml IVPUSH ONETIME ONE Stop: 07/14/20 09:48 Last Admin: 07/14/20 10:46 Dose: 100 ml Documented by: Norgestrel-Ethinyl Estradiol [Cryselle- 28 Tablet] Pt Own 0 each PO ASDIRECTED ROBERTH Sodium Chloride (Sodium Chloride 0.9% 10 Ml Syringe) 10 ml FLUSH ONETIME PRN PRN Reason: IV FLUSH Last Admin: 07/14/20 10:47 Dose: 10 ml Documented by: - Exam Quality Assessment: Reports: DVT Prophylaxis. Denies: Supplemental Oxygen, Urine Catheter General: Reports: Alert, Oriented, Cooperative, No Acute Distress HEENT: Reports: Pupils Equal, Pupils Reactive, Mucous Membr. Moist/[place] Neck: Reports: Supple, Trachea Midline Lungs: Reports: Clear to Auscultation, Normal Respiratory Effort Cardiovascular: Reports: Regular Rate, Regular Rhythm GI/Abdominal Exam: Normal Bowel Sounds, Soft, Non-Tender, No Organomegaly, No Distention, No Abnormal Bruit, No Mass (Female) Exam: Deferred Rectal (Female) Exam: Deferred Back Exam: Reports: Normal Inspection, Full Range of Motion Extremities: Normal Inspection, Normal Range of Motion, Non-Tender, No Pedal Edema, Normal Capillary Refill Skin: Reports: Warm, Dry, Intact Neurological: Reports: No New Focal Deficit Psy/Mental Status: Reports: Alert, Normal Affect, Normal Mood <Rangel Peterson Jr - Last Filed: 07/16/20 16:47> Discharge Summary - Referral to Home Health Primary Care Physician: Juliet Wade NP - Patient Summary/Data Consults: Consultations 07/14/20 07:47 Respiratory Care Assess and Treatment [CONS] Routine - Discharge Summary/Plan Comment Discharge Summary/Plan Comment: Case discussed and preceptored. Agree with evaluation, assessment and plan. -Andrew Muse Jr., DO - Patient Data Vitals - Most Recent: Last Vital Signs Temp 97.9 F 07/16/20 07:21 Pulse 63 07/16/20 07:21 Resp 16 07/16/20 07:21 BP 112/66 07/16/20 07:21 Pulse Ox 91 L 07/16/20 07:21 I&O - Last 24 hours: Intake & Output 07/16/20 07/16/20 07/16/20 06:59 14:59 22:59 Intake Total 600 0 Output Total 450 Balance 150 0 Lab Results - Last 24 hrs: Laboratory Results - last 24 hr 07/15/20 07/16/20 07/16/20 Range/Units 05:16 04:51 04:51 WBC 3.80 L (3.98-10.04) K/mm3 RBC 4.58 (3.98-5.22) M/mm3 Hgb 13.8 (11.2-15.7) gm/dl Hct 41.5 (34.1-44.9) % MCV 90.6 (79.4-94.8) fl MCH 30.1 (25.6-32.2) pg MCHC 33.3 (32.2-35.5) g/dl RDW Std Deviation 43.6 (36.4-46.3) fL Plt Count 169 L (182-369) K/mm3 MPV 10.8 (9.4-12.3) fl Neut % (Auto) 57.8 (34.0-71.1) % Lymph % (Auto) 33.7 (19.3-51.7) % Henry % (Auto) 8.2 (4.7-12.5) % Eos % (Auto) 0 L (0.7-5.8) Baso % (Auto) 0.3 (0.1-1.2) % Neut # (Auto) 2.20 (1.56-6.13) K/mm3 Lymph # (Auto) 1.28 (1.18-3.74) K/mm3 Henry # (Auto) 0.31 (0.24-0.36) K/mm3 Eos # (Auto) 0.00 L (0.04-0.36) K/mm3 Baso # (Auto) 0.01 (0.01-0.08) K/mm3 Manual Slide Review Abnormal smear Sodium 138 (136-145) mEq/L Potassium 3.5 (3.5-5.1) mEq/L Chloride 107 (98-107) mEq/L Carbon Dioxide 25 (21-32) mEq/L Anion Gap 9.5 (5-15) BUN 13 (7-18) mg/dL Creatinine 0.8 (0.55-1.02) mg/dL Est Cr Clr Drug Dosing 86.75 mL/min Estimated GFR (MDRD) > 60 (>60) mL/min BUN/Creatinine Ratio 16.3 (14-18) Glucose 126 H (70-99) mg/dL Hemoglobin A1c 5.5 ( - 5.6) % Calcium 8.1 L (8.5-10.1) mg/dL Magnesium 2.1 (1.8-2.4) mg/dL Total Bilirubin 0.6 (0.2-1.0) mg/dL AST 309 H (15-37) U/L ALT 222 H (14-59) U/L Alkaline Phosphatase 57 (46-116) U/L C-Reactive Protein 1.3 H* (<1.0) mg/dL Total Protein 6.7 (6.4-8.2) g/dl Albumin 2.9 L (3.4-5.0) g/dl Globulin 3.8 gm/dL Albumin/Globulin Ratio 0.8 L (1-2) Med Orders - Current: Current Medications Discontinued Medications Acetaminophen (Acetaminophen 325 Mg Tab) 975 mg PO Q4H PRN PRN Reason: Pain/Fever Albuterol (Albuterol 6.7 Gm Inhaler) 0 gm INH ONETIME ONE Stop: 07/13/20 22:22 Last Admin: 07/13/20 22:58 Dose: 2 puff Documented by: Albuterol (Albuterol 6.7 Gm Inhaler) 0 gm INH Q2H PRN PRN Reason: SOB/Wheezing Aspirin (Aspirin 81 Mg Tab.Chew) 81 mg PO DAILY [facility] Last Admin: 07/16/20 08:11 Dose: 81 mg Documented by: Cholecalciferol (Cholecalciferol (Vitamin D3) 5,000 Unit Cap) 5,000 unit PO DAILY [facility] Last Admin: 07/16/20 08:10 Dose: 5,000 unit Documented by: Dexamethasone (Dexamethasone 4 Mg/Ml Sdv) 6 mg IVPUSH ONETIME ONE Stop: 07/13/20 22:22 Last Admin: 07/13/20 22:53 Dose: 6 mg Documented by: Dexamethasone (Dexamethasone 4 Mg Tab) 6 mg PO DAILY [facility] Stop: 07/22/20 09:01 Last Admin: 07/16/20 08:10 Dose: 6 mg Documented by: Enoxaparin Sodium (Enoxaparin 100 Mg/1 Ml Syringe) 100 mg SUBCUT ONETIME ONE Stop: 07/14/20 00:11 Last Admin: 07/14/20 01:10 Dose: 100 mg Documented by: Enoxaparin Sodium (Enoxaparin 100 Mg/1 Ml Syringe) 100 mg SUBCUT Q24H [facility] Last Admin: 07/15/20 21:45 Dose: 100 mg Documented by: Famotidine (Famotidine 20 Mg Tab) 20 mg PO BID [facility] Last Admin: 07/16/20 08:10 Dose: 20 mg Documented by: Sodium Chloride (Normal Saline) 1,000 mls @ 1,000 mls/hr IV .BOLUS [facility] Last Admin: 07/13/20 22:53 Dose: 1,000 mls/hr Documented by: Remdesivir 200 mg/ Sodium (Chloride) 250 mls @ 250 mls/hr IV ONETIME ONE Stop: 07/13/20 23:57 Last Admin: 07/14/20 00:23 Dose: 250 mls/hr Documented by: Remdesivir 100 mg/ Sodium (Chloride) 100 mls @ 100 mls/hr IV Q24H [facility] Stop: 07/18/20 00:29 Last Admin: 07/15/20 23:38 Dose: Not Given Documented by: Sodium Chloride (Normal Saline) 100 mls @ 75 mls/hr IV ASDIRECTED [facility] Stop: 07/14/20 13:00 Last Admin: 07/14/20 10:46 Dose: 75 mls/hr Documented by: Iopamidol (Iopamidol 755 Mg/Ml 100 Ml Bottle) 100 ml IVPUSH ONETIME ONE Stop: 07/14/20 09:48 Last Admin: 07/14/20 10:46 Dose: 100 ml Documented by: Ondansetron HCl (Ondansetron 4 Mg/2 Ml Sdv) 4 mg IVPUSH Q6H PRN PRN Reason: Nausea/Vomiting Norgestrel-Ethinyl Estradiol [Cryselle- 28 Tablet] Pt Own 0 each PO ASDIRECTED [facility]ER[facility] Sodium Chloride (Sodium Chloride 0.9% 10 Ml Syringe) 10 ml FLUSH ASDIRECTED PRN PRN Reason: Keep Vein Open Last Admin: 07/13/20 22:53 Dose: 10 ml Documented by: Sodium Chloride (Sodium Chloride 0.9% 10 Ml Syringe) 10 ml FLUSH ONETIME PRN PRN Reason: IV FLUSH Last Admin: 07/14/20 10:47 Dose: 10 ml Documented by: Zinc Sulfate (Zinc Sulfate 220 Mg Cap) 220 mg PO DAILY [facility] Last Admin: 07/16/20 08:11 Dose: 220 mg Documented by:
[2020-07-16 13:55] LABS: HEMOGLOBIN A1C 5.5 %
== END 2020-07-16 11:06 | disposition home or self-care (01) | DRG 137 ==
LOC: JD.ED 21:50 → JD.MS 07-14 00:29
PROVIDERS: ADMIT Hospitalist; ATTEND Hospitalist
PROC: XW033E5 Introduction of Remdesivir Anti-infective into Peripheral Vein, Percutaneous Approach, New Technology Group 5 (ICD-10-PCS; principal; 2020-07-14)
PROC: 8E0ZXY6 Isolation (ICD-10-PCS; 2020-07-14)
DX: U07.1 COVID-19 (principal); J12.82 Pneumonia due to coronavirus disease 2019; R79.1 Abnormal coagulation profile; H54.7 Unspecified visual loss; E66.9 Obesity, unspecified; Z87.891 Personal history of nicotine dependence; Z90.49 Acquired absence of other specified parts of digestive tract; Z68.34 Body mass index [BMI] 34.0-34.9, adult
CPT/HCPCS: 36415; 71045; 71045-26; 71275; 71275-26; 80053; 80076; 82306; 83036; 83605; 83735; 83880; 84484; 84703; 85025; 85379; 85610; 85730; 86140; 93005; 93010; 94640; 94668; 94762; 96374; 99222; 99233; 99239; 99284; 99285-25; A9270-GY; J1100; J1650; J7030; J7050; J8540; Q9967; U0002